=== PATIENT | male | born 1955 | race Caucasian/White ===

== ENCOUNTER 2018-03-08 06:23 | Observation (INO) | payer BC ==
--- NOTE | 2018-03-08 06:48 | ED ---
HPI Chest Pain - HPI Summary HPI Summary: 62 year old male presents to the ED with chest pain that began yesterday afternoon. Patient states the pain was a 1/10 and describes the pain as pressure. Patient states the pain began while he was resting watching television and has been persistent since. He states he is also having pain in his jaw, but this is not a radiation of pain and feels they are "separate." Patient had 2 stents placed in the LAD in 2016. His last stress test was also in 2016. He had been a patient of Dr. Brandan whitfield 1.5 years, but recently released and seen by Dr. Davidson most recently 5 days ago. EKG was performed and visit was otherwise normal. No EKG changes. States this pressure is not worse with exertion, however he has been shoveling his driveway over the last 2 evening prior to the onset of the pressure. Patient took his morning doses of amlodipine and Lipitor but did not take any aspirin or Nitro for the pain. Patient reports mild nausea but denies, vomiting, diaphoresis, SOB, numbness or tingling in arms or legs, arm pain, back pain, dizziness, diarrhea, and constipation. Patient also has a history of gout but denies any current symptoms. Non-smoker. Denies any fevers, sweats or chills. No radiation of the chest pressure to the back. - History of Current Complaint Chief Complaint: EDChestPainROMI Time Seen by Provider: 03/08/18 06:25 Hx Obtained From: Patient Onset/Duration: Started Days Ago, Still Present Timing: Constant Initial Severity: Mild Current Severity: Mild Pain Intensity: 1 Pain Scale Used: 0-10 Numeric Chest Pain Location: Mid Sternal Chest Pain Radiates To:: Jaw Character: Dull/Aching Aggravating Factor(s): Nothing Alleviating Factor(s): Nothing Associated Signs and Symptoms: Positive: Nausea. Negative: Headaches, Dizziness , Shortness of Breath, Diaphoresis, Abdominal Pain, Vomiting - Additional Pertinent History Primary Care Physician: [id number] Recent Stress Test: No - Last stress test 2015 - Allergy/Home Medications Allergies/Adverse Reactions: Allergies Allergy/AdvReac Type Severity Reaction Status Date / Time No Known Allergies Allergy Verified 03/08/18 06:30 Home Medications: Home Medications Allopurinol 100 mg PO DAILY 03/08/18 [History Confirmed 03/08/18] PMH/Surg Hx/FS Hx/Imm Hx Endocrine/Hematology History: Denies: Hx Anticoagulant Therapy, Hx Diabetes, Hx Thyroid Disease Cardiovascular History: Reports: Hx Angina, Hx Hypercholesterolemia, Other Cardiovascular Problems/Disorders - Cardiac catherization (01/02/2016) Denies: Hx Congestive Heart Failure, Hx Deep Vein Thrombosis, Hx Hypertension , Hx Myocardial Infarction, Hx Pacemaker/ICD Respiratory History: Denies: Hx Asthma, Hx Chronic Obstructive Pulmonary Disease (COPD), Hx Lung Cancer, Hx Pneumonia, Hx Pulmonary Embolism GI History: Denies: Hx Gall Bladder Disease, Hx Gastrointestinal Bleed, Hx Ulcer, Hx Urosepsis History: Denies: Hx Kidney Stones, Hx Renal Disease Musculoskeletal History: Reports: Hx Gout Neurological History: Denies: Hx Dementia, Hx Migraine, Hx Seizures, Hx Transient Ischemic Attacks (TIA) Psychiatric History: Denies: Hx Anxiety, Hx Depression, Hx Schizophrenia, Hx Bipolar Disorder - Surgical History Surgery Procedure, Year, and Place: Cardiac Catherization (01/02/2016) Infectious Disease History: No Infectious Disease History: Denies: Hx Clostridium Difficile, Hx Hepatitis, Hx Human Immunodeficiency Virus (HIV), Hx of Known/Suspected MRSA, Hx Shingles, Hx Tuberculosis, Hx Known/ Suspected VRE, Hx Known/Suspected VRSA, History Other Infectious Disease, Traveled Outside the [place] in Last 30 Days - Family History Known Family History: Negative: Cardiac Disease, Hypertension, Diabetes, Renal Disease - Social History Alcohol Use: Rare Substance Use Type: Reports: None Hx Tobacco Use: No Smoking Status (MU): Never Smoked Tobacco Review of Systems Constitutional: Negative Eyes: Negative Positive: Chest Pain Negative: Shortness Of Breath Positive: Nausea. Negative: Abdominal Pain, Vomiting Negative: Headache, Weakness, Numbness All Other Systems Reviewed And Are Negative: Yes Physical Exam Triage Information Reviewed: Yes Vital Signs On Initial Exam: Initial Vitals Temp Pulse Resp BP Pulse Ox 98.2 F 60 16 146/80 94 03/08/18 06:25 03/08/18 06:25 03/08/18 06:25 03/08/18 06:25 03/08/18 06:25 Vital Signs Reviewed: Yes Appearance: Positive: Well-Appearing, No Pain Distress, Well-Nourished Skin: Positive: Warm, Skin Color Reflects Adequate Perfusion Head/Face: Positive: Normal Head/Face Inspection Eyes: Positive: EOMI ENT: Positive: Normal ENT inspection Respiratory/Lung Sounds: Positive: Clear to Auscultation, Breath Sounds Present Cardiovascular: Positive: Normal, RRR, Pulses are Symmetrical in both Upper and Lower Extremities. Negative: Leg Edema Left, Leg Edema Right Abdomen Description: Positive: Nontender, No Organomegaly, Soft Bowel Sounds: Positive: Present Psychiatric: Positive: Normal Diagnostics - Vital Signs Vital Signs Temp Pulse Resp BP Pulse Ox 03/08/18 06:25 98.2 F 60 16 146/80 94 - Laboratory Result Diagrams: 03/08/18 06:45 03/08/18 06:45 Lab Statement: Any lab studies that have been ordered have been reviewed, and results considered in the medical decision making process. Chest Pain Course/Dx - Course Course Of Treatment: Mr. Romero presents to the ED with chest pain that began yesterday afternoon. Patient states he is now experiencing jaw pain but the pain is not radiating from the chest, it feels "separate." Patient describes the pain as a mild pressure and states the pain occurs at rest and does not worsen with exertion. Patient had 2 stents placed in 2016, his last stress test was also in 2016. Patient was seen by Dr. White for 1.5 years after his stent placement and was released to Dr. Davidson. Dr. Davidson saw him 5 days ago in the office and his visit was unremarkable. An EKG was obtained and showed t-wave inversion that is unchanged from his EKG in 2016. Troponin x 1 was negative. Due to patients extensive cardiac history hospitalist was contacted for consideration for admission. Second troponin obtained and pending while awaiting admission. RN states at 9am, patient became hypoxic at 90% on RA and she subsequently placed him on 3L which increased his sat to 95%. - Chest Pain Differential Diagnosis/HQI/PQRI: Acute OR, Angina, Chest Wall - Diagnoses Provider Diagnoses: Chest pain - Provider Notifications Discussed Care Of Patient With: Igor Osborne - Admission Instructed by Provider To: Admit As Inpatient Discharge - Sign-Out/Discharge Documenting (check all that apply): Patient Departure - Discharge Plan Condition: Stable Disposition: ADMITTED TO [facility] Referrals: Jamel Pascal MD [Primary Care Provider] - - Billing Disposition and Condition Condition: STABLE Disposition: Admitted to [facility]
[2018-03-08 07:21] LABS: ABS Basophils 0.1 10^3/ul (0-0.2); ABS Eosinophils 0.1 10^3/ul (0-0.6); ABS Lymphocytes 1.6 10^3/ul (1.0-4.8); ABS Monocytes 0.6 10^3/ul (0-0.8); ABS Neutrophils 4.3 10^3/ul (1.5-7.7); ABS Nucleated RBC 0 10^3/ul; Hematocrit 47 % (42-52); Hemoglobin 15.8 g/dl (14.0-18.0); Mean Corpuscular HGB Conc 34 g/dl (31-36); Mean Corpuscular Hemoglobin 31 pg (27-31); Mean Corpuscular Volume 91 fL (80-94); Mean Platelet Volume 10.9 fL (7.4-10.4); Nucleated Red Blood Cells % 0.1; Platelet Count 177 10^3/ul (150-450); Red Blood Count 5.14 10^6/ul (4.00-5.40); Red Cell Distribution Width 14 % (10.5-15); White Blood Count 6.6 10^3/ul (3.5-10.8)
[2018-03-08 07:29] LABS: INR 0.99 (0.77-1.02)
[2018-03-08 07:38] LABS: EGFR Non-African American 83.4 (>60)
--- OUTSIDE RECORDS SUMMARY | 2018-03-08 08:13 | XMS REPORT ---
:1955 External Reference #:[id number] Author Organization [employer] Address [address] [place] [address] [place] [address] Phone [phone] Care Team Providers Name Role Phone Jamel Pascal III, MD Primary Care Physician Unavailable Payers Type Date Identification Numbers Payment Provider Subscriber Commercial Effective: Policy Number: BS Trish Romero 2011 [id number] PayID: [id number] [address] [address] [place] [address] Medigap Part B Effective: 2009 Policy Number: BS Of JOEL Romero [id number] Expires: 2011 PayID: [id number] [address] [address] [place] [address] Problems Date Description Provider Status Onset: 05/14/2011 Mixed hyperlipidemia Jamel Pascal M.D. Active Onset: 05/14/2011 Impaired fasting glycaemia Jamel Pascal M.D. Active Onset: 05/14/2011 Gout Jamel Pascal M.D. Active Onset: 07/13/2013 Pure hypercholesterolemia Jamel Pascal M.D. Active Onset: 01/10/2016 [facility] [place] cor Sebastian Gipson M.D., [facility] , Active art w unsp ang pctrs [facility] Onset: 01/10/2016 Encounter for planned postprocedural Sebastian Gipson M.D., [facility], Active wound closure [facility] Onset: 07/09/2016 [facility] [place] Sebastian Gipson M.D., [facility], Active coronary artery w/o ang pctrs [facility] Family History Date Family Member(s) Problem(s) Comments Father due to Parkinsons Disease () - age 72 Social History Type Date Description Comments Marital Status 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 Cigarette Use Never Smoked Cigarettes ETOH Use Rarely consumes alcohol Smoking Patient has never smoked Recreational Drug Use Never Used Drugs Daily Caffeine Consumes on average 1 cup of 10 oz daily regular coffee per day Exercise Type/Frequency Exercises regularly walks 1-2 times a day for 2 1/2 miles 4-5 days a week Allergies, Adverse Reactions, Alerts Date Description Reaction Status Severity Comments 05/17/2007 NKDA active Medications Medication Date Status Form Strength Qnty SIG Indications Ordering Provider Ciclopirox 02/24/ Active Gel 0.77% 30gm apply B35.6 Jamel Rivers 2017 twice a [place], day for M.D. 2-3 weeks Allopurinol 07/10/ Active Tablets 100mg 90tabs 1 by Sebastian Hagen mouth Stefek, every day M.D., [facility] Aspir-81 / Active Tablets DR 81mg 90tabs 1 by Jamel Rivers 0000 mouth Naida, every day M.D. Atorvastatin / Active Tablets 80mg 90tabs 1 by Devante Virk Calcium 0000 mouth Davidson, DO every day [facility] Nitroglycerin / Active Tablets 0.4mg 14tabs 1 under Devante STorito 0000 Sub tongue, Davidson, DO august [facility] repeat 3x Amlodipine / Active Tablets 5mg 90tabs 1 by Devante Virk Besylate 0000 mouth Davidson, DO every day [facility] Brilinta 01/12/ Hx Tablets 60mg 60tabs 1 tab by Sebastian 2016 - mouth Stefek, 01/23/ twice a M.D., 2017 [facility] Lipitor 07/13/ Hx Tablets 20mg 30tabs 1 by Jamel Rivers 2013 - mouth Naida, 01/05/ every M.D. 2015 night at bedtime [id number] 11/30/ Hx Tablets 100mg 30tabs 1 by Jamel Rivers 2008 - mouth Naida, 07/10/ every day M.D. 2017 Indomethacin 09/09/ Hx Capsules 25mg 30caps 1 by Jamel Rivers 2007 - mouth Naida, 01/14/ three M.D. 2016 times a day as needed ( Pt told to not take as of 01/07/[address] Pascal III) Aspirin / Hx Tablets 81mg 1 PO qd Victor Manuel 0000 - MD Alfredo 2015 Lipitor / Hx Tablets 40mg 30tabs 1 po hs Jamel VelázquezTorito 0000 - Naida, 07/13/ M.DTorito 2013 Brilinta / Hx Tablets 90mg 180tab 1 tab by Sebastian 0000 - s mouth Brandan, 01/12/ twice a M.D., 2016 [facility], [facility] Immunizations CPT Code Status Date Vaccine Lot # [id number] Given 02/24/2018 Tdap - Tetanus/Diptheria/Acellular Pertussis [id number] Given 02/24/2018 Influenza Virus Vaccine, Quadrivalent, Split, [id number] Preservative Free [id number] Given 06/09/2006 Td (History By Patient) Vital Signs Date Vital Result Comment 03/03/2018 Height 67 inches 5'7" Weight 248.00 lb Heart Rate 74 /min reg BP Systolic Sitting 120 mmHg Ra larg cuff BP Diastolic Sitting 70 mmHg Ra larg cuff BP Systolic Standing 130 mmHg Ra larg cuff BP Diastolic Standing 75 mmHg Ra larg cuff Respiratory Rate 18 /min O2 % BldC Oximetry 98 % BMI (Body Mass Index) 38.8 kg/m2 02/24/2018 Height 67 inches 5'7" Weight 248.00 lb Heart Rate 71 /min BP Systolic Sitting 120 mmHg BP Diastolic Sitting 80 mmHg O2 % BldC Oximetry 95 % BMI (Body Mass Index) 38.8 kg/m2 06/18/2017 Height 68 inches 5'8" Weight 235.00 lb Heart Rate 56 /min BP Systolic 126 mmHg BP Diastolic 74 mmHg Respiratory Rate 15 /min Pain Level 1 BMI (Body Mass Index) 35.7 kg/m2 01/26/2017 Height 67.75 inches 5'7.75" Weight 239.38 lb Heart Rate 69 /min BP Systolic 140 mmHg BP Diastolic 72 mmHg Body Temperature 97.4 F O2 % BldC Oximetry 95 % BMI (Body Mass Index) 36.7 kg/m2 01/12/2017 Height 67.75 inches 5'7.75" Weight 238.00 lb without Heart Rate 70 /min sit and 66 stand BP Systolic Sitting 138 mmHg Rue Reg cuff BP Diastolic Sitting 86 mmHg Rue Reg cuff BP Systolic Standing 126 mmHg Rue reg cuff BP Diastolic Standing 80 mmHg Rue reg cuff Respiratory Rate 17 /min BMI (Body Mass Index) 36.5 kg/m2 Ejection Fraction 60-65% date 01/11/16 echo 07/09/2016 Height 67.75 inches 5'7.75" Weight 233.00 lb w/ shoes Heart Rate 60 /min reg BP Systolic Sitting 130 mmHg Rue, lg cuff BP Diastolic Sitting 70 mmHg Rue, lg cuff BP Systolic Standing 102 mmHg Rue BP Diastolic Standing 70 mmHg Rue BP Systolic Recheck 122 mmHg Rue BP Diastolic Recheck 66 mmHg Rue Respiratory Rate 16 /min BMI (Body Mass Index) 35.7 kg/m2 01/15/2016 Height 67.75 inches 5'7.75" Weight 245.00 lb Heart Rate 75 /min BP Systolic 122 mmHg BP Diastolic 82 mmHg Body Temperature 97.4 F BMI (Body Mass Index) 37.5 kg/m2 01/10/2016 Height 67.75 inches 5'7.75" Weight 247.75 lb with shoes Heart Rate 68 /min BP Systolic Sitting 124 mmHg LA reg cuff BP Diastolic Sitting 88 mmHg LA reg cuff BP Systolic Standing 122 mmHg La reg cuff BP Diastolic Standing 84 mmHg La reg cuff Respiratory Rate 16 /min BMI (Body Mass Index) 37.9 kg/m2 01/07/2016 Height 67.75 inches 5'7.75" Weight 257.50 lb Heart Rate 85 /min BP Systolic Sitting 130 mmHg BP Diastolic Sitting 90 mmHg Body Temperature 97.4 F O2 % BldC Oximetry 98 % BMI (Body Mass Index) 39.4 kg/m2 08/30/2015 Height 67.75 inches 5'7.75" Weight 258.00 lb Heart Rate 77 /min BP Systolic Sitting 126 mmHg BP Diastolic Sitting 78 mmHg Body Temperature 97.8 F O2 % BldC Oximetry 97 % BMI (Body Mass Index) 39.5 kg/m2 07/19/2014 Height 67.75 inches 5'7.75" Weight 251.00 lb Heart Rate 63 /min BP Systolic Sitting 130 mmHg BP Diastolic Sitting 86 mmHg Body Temperature 97.1 F O2 % BldC Oximetry 94 % BMI (Body Mass Index) 38.4 kg/m2 07/13/2013 Height 67.75 inches 5'7.75" Weight 225.00 lb Heart Rate 60 /min BP Systolic Sitting 142 mmHg BP Diastolic Sitting 78 mmHg Body Temperature 97.2 F BMI (Body Mass Index) 34.5 kg/m2 06/30/2012 Height 68 inches 5'8" Weight 268.50 lb Heart Rate 80 /min BP Systolic Sitting 130 mmHg BP Diastolic Sitting 78 mmHg BMI (Body Mass Index) 40.8 kg/m2 05/14/2011 Height 67.75 inches 5'7.75" Weight 263.00 lb Heart Rate 84 /min BP Systolic Sitting 134 mmHg BP Diastolic Sitting 92 mmHg BMI (Body Mass Index) 40.3 kg/m2 06/19/2010 Weight 254.00 lb Heart Rate 78 /min BP Systolic Sitting 132 mmHg BP Diastolic Sitting 70 mmHg 11/21/2009 Weight 249.00 lb Heart Rate 79 /min BP Systolic Sitting 150 mmHg BP Diastolic Sitting 84 mmHg 05/24/2009 Weight 263.00 lb Heart Rate 64 /min BP Systolic Sitting 138 mmHg BP Diastolic Sitting 90 mmHg 11/21/2008 Height 68 inches 5'8" Weight 257.00 lb Heart Rate 60 /min BP Systolic Sitting 148 mmHg BP Diastolic Sitting 96 mmHg BMI (Body Mass Index) 39.1 kg/m2 02/28/2008 Height 68 inches 5'8" Weight 255.00 lb Heart Rate 64 /min BP Systolic Sitting 142 mmHg BP Diastolic Sitting 62 mmHg BMI (Body Mass Index) 38.8 kg/m2 11/17/2007 Height 68 inches 5'8" Weight 257.00 lb Heart Rate 72 /min BP Systolic Sitting 122 mmHg BP Diastolic Sitting 80 mmHg BMI (Body Mass Index) 39.1 kg/m2 05/18/2007 Height 68 inches 5'8" Weight 261.00 lb Heart Rate 72 /min BP Systolic Sitting 102 mmHg BP Diastolic Sitting 70 mmHg BMI (Body Mass Index) 39.7 kg/m2 Results Test Date Test Result H/L Range Note Comp Metabolic Panel 02/18/2018 Sodium 143 mmol/L 135-145 Potassium 4.1 mmol/L 3.5-5.0 Chloride 111 mmol/L 101-111 Co2 Carbon Dioxide 25 mmol/L 22-32 Anion Gap 7 mmol/L 2-11 Glucose 89 mg/dL 70-100 Blood Urea Nitrogen 17 mg/dL 6-24 Creatinine 1.05 mg/dL 0.67-1.17 BUN/Creatinine Ratio 16.2 8-20 Calcium 9.2 mg/dL 8.6-10.3 Total Protein 6.6 g/dL 6.4-8.9 Albumin 4.2 g/dL 3.2-5.2 Globulin 2.4 g/dL 2-4 Albumin/Globulin Ratio 1.8 1-3 Total Bilirubin 0.60 mg/dL 0.2-1.0 Alkaline Phosphatase 120 U/L High 34-104 Alt 33 U/L 7-52 Ast 28 U/L 13-39 Egfr Non- 71.6 >60 Egfr 86.6 >60 1 Lipid Profile (Trig/Chol/HDL) 02/18/2018 Triglycerides 150 mg/dL 2 Cholesterol 123 mg/dL 3 HDL Cholesterol 34.9 mg/dL 4 LDL Cholesterol 58 mg/dL 5 Lipid Profile (Trig/Chol/HDL) 03/05/2016 Triglycerides 104 mg/dL 6 Cholesterol 112 mg/dL 7 HDL Cholesterol 29.7 mg/dL 8 LDL Cholesterol 62 mg/dL 9 Laboratory test finding 03/05/2016 Ast (Sgot) 23 U/L 13-39 10 Alt (SGPT) 23 U/L 7-52 11 Basic Metabolic Panel 03/05/2016 Sodium 139 mmol/L 133-145 Potassium 4.0 mmol/L 3.5-5.0 Chloride 106 mmol/L 101-111 Co2 Carbon Dioxide 26 mmol/L 22-32 Anion Gap 7 mmol/L 2-11 Glucose 101 mg/dL High 70-100 Blood Urea Nitrogen 13 mg/dL 6-24 Creatinine 1.04 mg/dL 0.67-1.17 BUN/Creatinine Ratio 12.5 8-20 Calcium 9.1 mg/dL 8.6-10.3 Egfr Non- 72.8 >60 Egfr 93.7 >60 12 Laboratory test 03/05/2016 Hepatitis C Antibody Nonreactive Nonreactive 13 finding Laboratory test 01/11/2016 Partial Thrombo Time 32.4 seconds 26.0-36.3 finding PTT Inr/Protime 01/11/2016 Inr 1.17 High 0.89-1.11 Laboratory test 01/11/2016 B-Type Natriuretic 24 pg/mL 14 finding Peptide BNP CKMB 01/11/2016 CKMB ng/mL 1.8 ng/mL 0.6-6.3 Laboratory test 01/11/2016 Troponin-I (TnI) 0.02 ng/mL <0.03 15 finding Creatine Kinase(CK) 71 U/L 10-223 Myoglobin 21.3 ng/mL 17.4-105.7 Comp Metabolic Panel 01/11/2016 Sodium 137 mmol/L 133-145 Potassium 4.0 mmol/L 3.5-5.0 Chloride 106 mmol/L 101-111 Co2 Carbon Dioxide 23 mmol/L 22-32 Anion Gap 8 mmol/L 2-11 Glucose 100 mg/dL 70-100 Blood Urea Nitrogen 15 mg/dL 6-24 Creatinine 1.12 mg/dL 0.67-1.17 BUN/Creatinine Ratio 13.4 8-20 Calcium 8.9 mg/dL 8.6-10.3 Total Protein 6.8 g/dL 6.4-8.9 Albumin 4.0 g/dL 3.2-5.2 Globulin 2.8 g/dL 2-4 Albumin/Globulin Ratio 1.4 1-3 Total Bilirubin 0.80 mg/dL 0.2-1.0 Alkaline Phosphatase 84 U/L 34-104 Alt 28 U/L 7-52 Ast 24 U/L 13-39 Egfr Non- 66.9 >60 Egfr 86.0 >60 16 Laboratory test finding 01/11/2016 Lactic Acid 0.9 mmol/L 0.5-2.0 17 CBC Auto Diff 01/11/2016 White Blood Count 6.3 10^3/uL 3.5-10.8 Red Blood Count 4.87 10^6/uL 4.0-5.4 Hemoglobin 14.6 g/dL 14.0-18.0 Hematocrit 44 % 42-52 Mean Corpuscular Volume 90 fL 80-94 Mean Corpuscular Hemoglobin 30 pg 27-31 Mean Corpuscular HGB Conc 33 g/dL 31-36 Red Cell Distribution Width 13 % 10.5-15 Platelet Count 206 10^3/uL 150-450 Mean Platelet Volume 11 um3 High 7.4-10.4 Abs Neutrophils 3.9 10^3/uL 1.5-7.7 Abs Lymphocytes 1.2 10^3/uL 1.0-4.8 Abs Monocytes 0.7 10^3/uL 0-0.8 Abs Eosinophils 0.2 10^3/uL 0-0.6 Abs Basophils 0.4 10^3/uL High 0-0.2 Abs Nucleated RBC 0 10^3/uL Granulocyte % 61.9 % 38-83 Lymphocyte % 18.5 % Low 25-47 Monocyte % 11.3 % High 1-9 Eosinophil % 2.5 % 0-6 Basophil % 5.8 % High 0-2 Nucleated Red Blood Cells % 0 Laboratory test finding 01/02/2016 Troponin-I (TnI) 0.03 ng/mL High <0.03 18 CBC Auto Diff 01/01/2016 White Blood Count 6.6 10^3/uL 3.5-10.8 Red Blood Count 4.94 10^6/uL 4.0-5.4 Hemoglobin 15.2 g/dL 14.0-18.0 Hematocrit 45 % 42-52 Mean Corpuscular Volume 91 fL 80-94 Mean Corpuscular Hemoglobin 31 pg 27-31 Mean Corpuscular HGB Conc 34 g/dL 31-36 Red Cell Distribution Width 13 % 10.5-15 Platelet Count 179 10^3/uL 150-450 Mean Platelet Volume 11 um3 High 7.4-10.4 Abs Neutrophils 3.5 10^3/uL 1.5-7.7 Abs Lymphocytes 2.1 10^3/uL 1.0-4.8 Abs Monocytes 0.8 10^3/uL 0-0.8 Abs Eosinophils 0.2 10^3/uL 0-0.6 Abs Basophils 0.1 10^3/uL 0-0.2 Abs Nucleated RBC 0.01 10^3/uL Granulocyte % 52.7 % 38-83 Lymphocyte % 32.2 % 25-47 Monocyte % 11.5 % High 1-9 Eosinophil % 2.7 % 0-6 Basophil % 0.9 % 0-2 Nucleated Red Blood Cells % 0.1 Comp Metabolic Panel 01/01/2016 Sodium 137 mmol/L 133-145 Chloride 106 mmol/L 101-111 Co2 Carbon Dioxide 25 mmol/L 22-32 Glucose 100 mg/dL 70-100 Blood Urea Nitrogen 14 mg/dL 6-24 Creatinine 1.05 mg/dL 0.67-1.17 BUN/Creatinine Ratio 13.3 8-20 Calcium 8.6 mg/dL 8.6-10.3 Total Protein 6.5 g/dL 6.4-8.9 Albumin 3.9 g/dL 3.2-5.2 Globulin 2.6 g/dL 2-4 Albumin/Globulin Ratio 1.5 1-3 Total Bilirubin 0.40 mg/dL 0.2-1.0 Alkaline Phosphatase 92 U/L 34-104 Alt 41 U/L 7-52 Egfr Non- 72.0 >60 Egfr 92.7 >60 19 Potassium 4.1 mmol/L 3.5-5.0 Anion Gap 6 mmol/L 2-11 Ast 47 U/L High 13-39 Laboratory test finding 01/01/2016 Magnesium 2.1 mg/dL 1.9-2.7 Troponin-I (TnI) 0.02 ng/mL <0.03 20 Lipid Profile (Trig/Chol/HDL) 08/24/2015 Triglycerides 172 mg/dL 21 Cholesterol 153 mg/dL 22 HDL Cholesterol 31.8 mg/dL 23 LDL Cholesterol 87 mg/dL 24 Comp Metabolic Panel 08/24/2015 Sodium 140 mmol/L 133-145 Potassium 3.9 mmol/L 3.5-5.0 Chloride 106 mmol/L 101-111 Co2 Carbon Dioxide 27 mmol/L 22-32 Anion Gap 7 mmol/L 2-11 Glucose 102 mg/dL High 70-100 Blood Urea Nitrogen 16 mg/dL 6-24 Creatinine 1.13 mg/dL 0.67-1.17 BUN/Creatinine Ratio 14.2 8-20 Calcium 8.9 mg/dL 8.6-10.3 Total Protein 6.8 g/dL 6.4-8.9 Albumin 4.5 g/dL 3.2-5.2 Globulin 2.3 g/dL 2-4 Albumin/Globulin Ratio 2.0 1-3 Total Bilirubin 0.80 mg/dL 0.2-1.0 Alkaline Phosphatase 77 U/L 34-104 Alt 25 U/L 7-52 Ast 23 U/L 13-39 Egfr Non- 66.4 >60 Egfr 85.4 >60 25 Laboratory test finding 08/24/2015 Hemoglobin A1c (Glyco 5.8 % Less than 6.0 26 HGB) Uric Acid 7.0 mg/dL 4.4-7.6 Laboratory test finding 07/14/2014 Hemoglobin A1c 5.8 % Less than 6.0 27 , 28 Comp Metabolic Panel 07/14/2014 Sodium 139 mmol/L 133-145 27 Potassium 4.0 mmol/L 3.5-5.0 27 Chloride 107 mmol/L 101-111 27 Co2 Carbon Dioxide 26 mmol/L 22-32 27 Anion Gap 6 mmol/L 2-11 27 Glucose 88 mg/dL 70-100 27 Blood Urea Nitrogen 12 mg/dL 6-24 27 Creatinine 1.06 mg/dL 0.67-1.17 27 BUN/Creatinine Ratio 11.3 8-20 27 Calcium 9.1 mg/dL 8.6-10.3 27 Total Protein 6.5 g/dL 6.4-8.9 27 Albumin 4.4 g/dL 3.2-5.2 27 Globulin 2.1 g/dL 2-4 27 Albumin/Globulin Ratio 2.1 1-3 27 Total Bilirubin 0.70 mg/dL 0.2-1.0 27 Alkaline Phosphatase 75 U/L 34-104 27 Alt 35 U/L 7-52 27 Ast 30 U/L 13-39 27 Egfr Non- 71.8 >60 27 Egfr 92.3 >60 27, 29 Lipid Profile (Trig/Chol/HDL) 07/14/2014 Triglycerides 175 mg/dL 27, 30 Cholesterol 163 mg/dL 27, 31 HDL Cholesterol 34.9 mg/dL 27, 32 LDL Cholesterol 93 mg/dL 27, 33 Lipid Profile (Trig/Chol/HDL) 07/08/2013 Triglycerides 154 mg/dL 34 Cholesterol 127 mg/dL 35 HDL Cholesterol 28.8 mg/dL 36 LDL Cholesterol 67 mg/dL 37 CBC With Manual Diff 07/08/2013 White Blood Count 7.0 10^3/uL 4.8-10.8 Red Blood Count 5.04 10^6/uL 4.0-5.4 Hemoglobin 16.0 g/dL 14.0-18.0 Hematocrit 46 % 42-52 Mean Corpuscular Volume 90 fL 80-94 Mean Corpuscular Hemoglobin 32 pg High 27-31 Mean Corpuscular HGB Conc 35 g/dL 31-36 Red Cell Distribution Width 13 % 10.5-15 Platelet Count 197 10^3/uL 150-450 Mean Platelet Volume 10 um3 7.4-10.4 Abs Neutrophils 4.3 10^3/uL 1.5-7.7 Abs Lymphocytes 1.5 10^3/uL 1.0-4.8 Abs Monocytes 1.0 10^3/uL High 0-0.8 Abs Eosinophils 0.2 10^3/uL 0-0.6 Abs Basophils 0.1 10^3/uL 0-0.2 Abs Nucleated RBC 0.01 10^3/uL Neutrophil % 62 % 38-83 Lymphocytes % 22 % Low 25-47 Monocytes % 10 % 0-13 Eosinophils % 5 % 0-6 Reactive Lymph % 1 % 0-6 RBC Morphology Normal Normal Comp Metabolic Panel 07/08/2013 Sodium 140 mmol/L 133-145 Potassium 3.6 mmol/L Low 3.7-5.6 Chloride 106 mmol/L 101-111 Co2 Carbon Dioxide 28 mmol/L 22-32 Anion Gap 6 mmol/L 2-11 Glucose 87 mg/dL 70-100 Blood Urea Nitrogen 16 mg/dL 6-24 Creatinine 1.13 mg/dL 0.67-1.17 BUN/Creatinine Ratio 14.2 8-20 Calcium 8.8 mg/dL 8.6-10.3 Total Protein 6.4 g/dL 6.4-8.9 Albumin 4.3 g/dL 3.2-5.2 Globulin 2.1 g/dL 2-4 Albumin/Globulin Ratio 2.0 1-3 Total Bilirubin 0.40 mg/dL 0.2-1.0 Alkaline Phosphatase 93 U/L 34-104 Alt 40 U/L 7-52 Ast 34 U/L 13-39 Egfr Non- 66.9 >60 Egfr 86.0 >[address] Pascal's Lab Panel 07/08/2013 TSH (Thyroid Stimulating 0.64 IU/mL 0.34 -5.60 Horm) Throat-Beta Strept 03/24/2013 Throat Beta Strep (SEE NOTE) 39 Culture Throat-Beta Strept 09/14/2012 Throat Beta Strep (SEE NOTE) 40 Culture BMP Basic Metabolic 06/28/2012 Sodium 140 mmol/L 133-145 Panel Potassium 4.3 mmol/L 3.5-5.0 Chloride 110 mmol/L 101-111 Co2 Carbon Dioxide 27.0 mmol/L 22-32 Anion Gap 3.0 mmol/L 2-11 Glucose 104 mg/dL High 70-100 Blood Urea Nitrogen 12 mg/dL 6-24 Creatinine 1.00 mg/dL 0.50-1.40 BUN/Creatinine Ratio 12.0 8-20 Calcium 9.1 mg/dL 8.1-9.9 Egfr Non- 77.3 >60 Egfr 99.4 >60 41 Lipid Panel 06/28/2012 Triglycerides 227 mg/dL High 40-200 Cholesterol 159 mg/dL Less than 200 HDL Cholesterol 36 mg/dL Low 40-60 42 Cholesterol/HDL Ratio 4.4 Average 1-4.44 LDL Cholesterol 77.6 mg/dL Less Than 100 43 Laboratory test finding 06/28/2012 Hemoglobin A1c 5.3 % Less than 6.0 44 Uric Acid 5.7 mg/dL 2.6-7.2 DR Pascal's Lab Panel 05/12/2011 TSH 0.56 MIU/ML 0.34-5.60 Comp Metabolic Panel 05/12/2011 Sodium 140 mmol/L 135-145 Potassium 4.4 mmol/L 3.5-5.0 Chloride 107 mmol/L 101-111 Co2 (Carbon Dioxide) 26.0 mmol/L 22-32 Anion Gap 7.0 mmol/L 2-11 45 Glucose 95 mg/dL 70-100 BUN 13 mg/dL 6-24 Creatinine 1.2 mg/dL 0.50-1.40 One Over Creatinine 0.83 BUN/Creatinine Ratio 10.8 8-20 Calcium 9.1 mg/dL 8.1-9.9 Total Protein 6.7 GM/DL 6.2-8.1 Albumin 4.2 GM/DL 3.6-5.4 Globulin 2.5 GM/DL 2-4 Albumin/Globulin Ratio 1.7 1-3 Bilirubin Total 0.8 mg/dL 0.4-1.5 46 Alkaline Phosphatase 89 U/L 39-117 Alt (SGPT) 33 U/L 17-63 Ast (Sgot) 30 U/L 12-42 eGFR Non- 62.9 > 60 eGFR 80.8 > 60 47 Lipid Profile (Trig/Chol/HDL) 05/12/2011 Triglyceride 216 mg/dL High 40- 200 Cholesterol 161 mg/dL Less Than 200 48 High Density Lipoprotein 33 mg/dL Low 40-60 49 Cholesterol/HDL Ratio 4.88 AVERAGE 1-4.97 Low Density Lipoprotein 85 mg/dL Less Than 100 50 CBC With Electronic Diff 05/12/2011 White Blood Count 7.9 CUMM 4.8-10.8 Red Cell Count 5.19 CUMM 4.6-6.2 Hemoglobin 16.0 g/dL 14.0-18.0 Hematocrit 48 % 42-52 Mean Corpuscular Volume 92 um3 80-94 Mean Corpuscular Hemoglob 31 pg 27-31 Mean Corpuscular HGB Cone 34 g/dL 32-36 Redcell Distribution WDTH 13 % 10.5-15 Platelet Count 200 CUMM 150-450 Mean Platelet Volume 11.6 um3 High 7.4-10.4 Gran % 58.5 % 38-83 Lymph % 29.6 % 25-47 Mononuclear % 8.5 % 1-9 Eosinophil % 2.9 % 0-6 Basophil % 0.5 % 0-2 Abs Lymphs 2.3 1.0-4.8 Abs Mononuclear 0.7 0-0.8 Absolute Neutrophil Count 4.6 1.5-7.7 Abs Eosinophils 0.2 0-0.6 Abs Basophils 0 0-0.2 Laboratory test finding 05/12/2011 Hemoglobin A1c 5.6 % Less Than 6.0 51 Uric Acid 6.8 mg/dL 2.6-7.2 Basic Metabolic Panel 06/06/2010 Sodium 139 mmol/L 135-145 Potassium 4.2 mmol/L 3.5-5.0 Chloride 106 mmol/L 101-111 Co2 (Carbon Dioxide) 27.0 mmol/L 22-32 Anion Gap 6.0 mmol/L 2-11 52 Glucose 107 mg/dL High 70-100 BUN 11 mg/dL 6-24 Creatinine 1.00 mg/dL 0.50-1.40 One Over Creatinine 1.00 BUN/Creatinine Ratio 11.0 8-20 Calcium 9.0 mg/dL 8.1-9.9 eGFR Non- 77.9 > 60 eGFR 100.1 > 60 53 Laboratory test finding 06/06/2010 Hemoglobin A1c 5.8 % Less Than 6.[address] Pascal's Lab Panel 11/15/2009 TSH 0.51 MIU/ML 0.34-5.60 CMP Panel 11/15/2009 Sodium 139 mmol/L 135-145 Potassium 4.2 mmol/L 3.5-5.0 Chloride 109 mmol/L 101-111 Co2 (Carbon Dioxide) 24.0 mmol/L 22-32 Anion Gap 6.0 mmol/L 2-11 55 Glucose 112 mg/dL High 70-100 56 BUN 12 mg/dL 6-24 Creatinine 1.10 mg/dL 0.50-1.40 One Over Creatinine 0.90 BUN/Creatinine Ratio 10.9 8-20 Calcium 8.8 mg/dL 8.1-9.9 57 Total Protein 5.8 GM/DL Low 6.2-8.1 Albumin 4.0 GM/DL 3.6-5.4 Globulin 1.8 GM/DL Low 2-4 Albumin/Globulin Ratio 2.2 1-3 Bilirubin Total 0.8 mg/dL 0.4-1.5 58 Alkaline Phosphatase 103 U/L 39-117 Alt (SGPT) 27 U/L 17-63 Ast (Sgot) 28 U/L 12-42 eGFR Non- 74.1 > 60 eGFR 89.7 > 60 59 Lipid Panel 11/15/2009 Triglyceride 122 mg/dL 40-200 Cholesterol 139 mg/dL Less Than 200 60 High Density Lipoprotein 26 mg/dL Low 40-60 61 Cholesterol/HDL Ratio 5.35 AVERAGE High 1-4.97 Low Density Lipoprotein 89 mg/dL Less Than 100 62 CBC W/Electronic Diff 11/15/2009 White Blood Count 6.9 CUMM 4.8-10.8 Red Cell Count 4.90 CUMM 4.6-6.2 Hemoglobin 15.3 g/dL 14.0-18.0 Hematocrit 45 % 42-52 Mean Corpuscular Volume 92 um3 80-94 Mean Corpuscular Hemoglob 31 pg 27-31 Mean Corpuscular HGB Cone 34 g/dL 32-36 Redcell Distribution WDTH 13 % 10.5-15 Platelet Count 191 CUMM 150-450 Mean Platelet Volume 10.6 um3 High 7.4-10.4 Gran % 53.6 % 38-83 Lymph % 34.6 % 25-47 Mononuclear % 8.8 % 1-9 Eosinophil % 2.3 % 0-6 Basophil % 0.7 % 0-2 Abs Lymphs 2.4 1.0-4.8 Abs Mononuclear 0.6 0-0.8 Absolute Neutrophil Count 3.7 1.5-7.7 Abs Eosinophils 0.2 0-0.6 Abs Basophils 0 0-0.2 Manual Differential 11/15/2009 Polysegmented Neutrophil 51 % 38-83 Band Neutrophil 1 % 0-8 Lymphocyte 39 % 25-47 Monocyte 8 % 0-13 Eosinophil 1 % 0-6 Absolute Neutrophil Count 3.5 Anisocytosis SLIGHT Platelet Evaluation LARGE CBC With Manual Diff 05/21/2009 White Blood Count 6.9 CUMM 4.8-10.8 Red Cell Count 5.05 CUMM 4.6-6.2 Hemoglobin 15.7 g/dL 14.0-18.0 Hematocrit 46 % 42-52 Mean Corpuscular Volume 92 um3 80-94 Mean Corpuscular Hemoglob 31 pg 27-31 Mean Corpuscular HGB Cone 34 g/dL 32-36 Redcell Distribution WDTH 13 % 10.5-15 Platelet Count 195 CUMM 150-450 Mean Platelet Volume 10.5 um3 High 7.4-10.4 Polysegmented Neutrophil 58 % 38-83 Band Neutrophil 1 % 0-8 Lymphocyte 29 % 25-47 Monocyte 8 % 0-13 Eosenophil 1 % 0-6 Atypical Lymph 3 % 0-6 Absolute Neutrophil Count 4.0 RBC Morphology NORMAL Comp Metabolic Panel 05/21/2009 Sodium 141 mmol/L 135-145 Potassium 4.2 mmol/L 3.5-5.0 Chloride 109 mmol/L 101-111 Co2 (Carbon Dioxide) 26.0 mmol/L 22-32 Anion Gap 6.0 mmol/L 2-11 63 Glucose 94 mg/dL 70-100 64 BUN 16 mg/dL 6-24 Creatinine 1.00 mg/dL 0.50-1.40 One Over Creatinine 1.00 BUN/Creatinine Ratio 16.0 8-20 Calcium 9.0 mg/dL 8.1-9.9 65 Total Protein 6.0 GM/DL Low 6.2-8.1 Albumin 4.0 GM/DL 3.6-5.4 Globulin 2.0 GM/DL 2-4 Albumin/Globulin Ratio 2.0 1-3 Bilirubin Total 0.8 mg/dL 0.4-1.5 66 Alkaline Phosphatase 90 U/L 39-117 Alt (SGPT) 30 U/L 17-63 Ast (Sgot) 29 U/L 12-42 eGFR Non- 83.1 > 60 eGFR 100.5 > 60 67 Lipid Profile (Trig/Chol/HDL) 05/21/2009 Triglyceride 263 mg/dL High 40- 200 Cholesterol 169 mg/dL Less Than 200 68 High Density Lipoprotein 29 mg/dL Low 40-60 69 Cholesterol/HDL Ratio 5.83 AVERAGE High 1-4.97 Low Density Lipoprotein 87 mg/dL Less Than 100 70 Laboratory test finding 05/21/2009 TSH 0.48 MIU/ML 0.34-5.60 Laboratory test finding 02/07/2009 Uric Acid 6.5 mg/dL 2.6-7.2 Laboratory test finding 11/15/2008 TSH 0.39 MIU/ML 0.34-5.60 71 PSA Screening 0.60 NG/ML 0-4 71, 72 Uric Acid 11.0 mg/dL High 2.6-7.2 71 Lipid Profile (Trig/Chol/HDL) 11/15/2008 Triglyceride 127 mg/dL 40-200 71 Cholesterol 158 mg/dL Less Than 200 71, 73 High Density Lipoprotein 26 mg/dL Low 40-60 71, 74 Cholesterol/HDL Ratio 6.08 AVERAGE High 1-4.97 71 Low Density Lipoprotein 107 mg/dL High Less Than 100 71, 75 Comp Metabolic Panel 11/15/2008 Sodium 143 mmol/L 135-145 71 Potassium 4.8 mmol/L 3.5-5.0 71 Chloride 112 mmol/L High 101-111 71 Co2 (Carbon Dioxide) 27.0 mmol/L 22-32 71 Anion Gap 4.0 mmol/L 2-11 71, 76 Glucose 106 mg/dL High 70-100 71, 77 BUN 15 mg/dL 6-24 71 Creatinine 1.20 mg/dL 0.50-1.40 71 One Over Creatinine 0.80 71 BUN/Creatinine Ratio 12.5 8-20 71 Calcium 9.4 mg/dL 8.1-9.9 71, 78 Total Protein 6.4 GM/DL 6.2-8.1 71 Albumin 4.1 GM/DL 3.6-5.4 71 Globulin 2.3 GM/DL 2-4 71 Albumin/Globulin Ratio 1.8 1-3 71 Bilirubin Total 1.1 mg/dL 0.4-1.5 71, 79 Alkaline Phosphatase 73 U/L 39-117 71 Alt (SGPT) 37 U/L 17-63 71 Ast (Sgot) 33 U/L 12-42 71 eGFR Non- 67.3 > 60 71 eGFR 81.4 > 60 71, 80 CBC With Electronic Diff 11/15/2008 White Blood Count 5.3 CUMM 4.8-10.8 71 Red Cell Count 5.15 CUMM 4.6-6.2 71 Hemoglobin 15.8 g/dL 14.0-18.0 71 Hematocrit 47 % 42-52 71 Mean Corpuscular Volume 91 um3 80-94 71 Mean Corpuscular Hemoglob 31 pg 27-31 71 Mean Corpuscular HGB Cone 34 g/dL 32-36 71 Redcell Distribution WDTH 13 % 10.5-15 71 Platelet Count 191 CUMM 150-450 71 Mean Platelet Volume 10.7 um3 High 7.4-10.4 71 Gran % 47.6 % 38-83 71 Lymph % 37.0 % 25-47 71 Mononuclear % 11.9 % High 1-9 71 Eosinophil % 2.7 % 0-6 71 Basophil % 0.8 % 0-2 71 Abs Lymphs 2.0 1.0-4.8 71 Abs Mononuclear 0.6 0-0.8 71 Absolute Neutrophil Count 2.5 1.5-7.7 71 Abs Eosinophils 0.1 0-0.6 71 Abs Basophils 0 0-0.2 71 Liver Function Panel 11/11/2007 Total Protein 6.7 GM/DL 6.2-8.1 81 Albumin 4.2 GM/DL 3.6-5.4 81 Globulin 2.5 GM/DL 2-4 81 Albumin/Globulin Ratio 1.7 1-3 81 Bilirubin Total 0.6 mg/dL 0.4-1.5 81 Bilirubin Direct 0.2 mg/dL 0.1-0.5 81 Indirect Bilirubin 0.4 mg/dL 0.1-0.75 81 Alkaline Phosphatase 100 U/L 39-117 81 Alt (SGPT) 43 U/L 17-63 81 Ast (Sgot) 36 U/L 12-42 81 Lipid Profile (Trig/Chol/HDL) 11/11/2007 Triglyceride 195 mg/dL 40-200 81 Cholesterol 160 mg/dL Less Than 200 81, 82 High Density Lipoprotein 31 mg/dL Low 40-60 81, 83 Cholesterol/HDL Ratio 5.16 AVERAGE High 1-4.97 81 Low Density Lipoprotein 90 mg/dL Less Than 100 81, 84 Comp Metabolic Panel 05/13/2007 One Over Creatinine 0.83 Anion Gap 6.0 mmol/L 2-11 85 Albumin/Globulin Ratio 1.4 1-3 Albumin 4.1 GM/DL 3.6-5.4 Alkaline Phosphatase 82 U/L 39-117 Alt (SGPT) 41 U/L 17-63 Ast (Sgot) 35 U/L 12-42 BUN 18 mg/dL 6-24 Calcium 9.2 mg/dL 8.7-10.2 Chloride 105 mmol/L 101-111 Co2 (Carbon Dioxide) 27.0 mmol/L 22-32 Globulin 3.0 GM/DL 2-4 Glucose 97 mg/dL 70-105 Potassium 4.0 mmol/L 3.5-5.0 Sodium 138 mmol/L 135-145 Bilirubin Total 0.8 mg/dL 0.4-1.5 Total Protein 7.1 GM/DL 6.2-8.1 BUN/Creatinine Ratio 15.0 8-20 Creatinine 1.2 mg/dL 0.5-1.4 Lipid Profile 05/13/2007 Cholesterol/HDL Ratio 5.32 AVERAGE High 1-4.97 (Trig/Chol/HDL) Cholesterol 165 mg/dL Less Than 200 86 Triglyceride 192 mg/dL 40-200 High Density Lipoprotein 31 mg/dL Low 40-60 87 Low Density Lipoprotein 96 mg/dL Less Than 100 88 Laboratory test finding 05/13/2007 PSA Screening 0.54 NG/ML 0-4 89 TSH 0.36 MIU/ML 0.34-5.60 CBC W/ Electronic Diff 05/13/2007 White Blood Count 6.8 CUMM 4.8-10.8 Abs Basophils 0 0-0.2 Abs Eosinophils 0.1 0-0.6 Absolute Neutrophil Count 3.6 1.5-7.7 Abs Lymphs 2.3 1.0-4.8 Abs Mononuclear 0.7 0-0.8 Basophil % 0.6 % 0-2 Hematocrit 47 % 42-52 Hemoglobin 16.0 g/dL 14.0-18.0 Eosinophil % 2.0 % 0-6 Gran % 53.3 % 38-83 Lymph % 33.3 % 20-45 Mean Corpuscular HGB [facility] 34 g/dL 32-36 Mean Corpuscular Hemoglob 31 pg 27-31 Mean Corpuscular Volume 90 um3 80-94 Mean Platelet Volume 11.9 um3 High 7.4-10.4 Mononuclear % 10.8 % High 1-9 Platelet Count 227 CUMM 150-450 Red Cell Count 5.22 CUMM 4.6-6.2 Redcell Distribution WDTH 13 % 10.5-15 1 Because ethnic data is not always readily available, this report includes an eGFR for both -Americans and non- Americans. The National Kidney Disease Education Program (NKDEP) does not endorse the use of the MDRD equation for patients that are not between the ages of 18 and 70, are , have extremes of body size, muscle mass, or nutritional status, or are non- or non-. According to the National Kidney Foundation, irrespective of diagnosis, the stage of the disease is based on the level of kidney function: Stage Description GFR(mL/min/1.73 m(2)) 1 Kidney damage with normal or decreased GFR 90 2 Kidney damage with mild decrease in GFR 60-89 3 Moderate decrease in GFR 30-59 4 Severe decrease in GFR 15-29 5 Kidney failure <15 (or dialysis) 2 Desirable: <150 Borderline High: 150-199 High: 200-499 Very High: >500 3 Desirable: <200 Borderline High: 200-239 High: >239 4 Low: <40 Desirable: 40-60 High: >60 5 Desirable: <100 Near Optimal: 100-129 Borderline High: 130-159 High: 160-189 Very High: >189 6 Desirable <150 Borderline high 150-199 High 200-499 Very High >500 7 Desirable <200 Borderline high 200-239 High >239 8 Low <40 Desirable: 40-60 High: >60 9 Desirable: <100 mg/dL Near Optimal: 100-129 mg/dL Borderline High: 130-159 mg/dL High: 160-189 mg/dL Very High: >189 mg/dL 10 FASTING 11 FASTING 12 Because ethnic data is not always readily available, this report includes an eGFR for both -Americans and non- Americans. The National Kidney Disease Education Program (NKDEP) does not endorse the use of the MDRD equation for patients that are not between the ages of 18 and 70, are , have extremes of body size, muscle mass, or nutritional status, or are non- or non-. According to the National Kidney Foundation, irrespective of diagnosis, the stage of the disease is based on the level of kidney function: Stage Description GFR(mL/min/1.73 m(2)) 1 Kidney damage with normal or decreased GFR 90 2 Kidney damage with mild decrease in GFR 60-89 3 Moderate decrease in GFR 30-59 4 Severe decrease in GFR 15-29 5 Kidney failure <15 (or dialysis) 13 FASTING 14 >100 to <200 pg/mL: likely compensated congestive heart failure (CHF) 200 to 400 pg/mL: likely moderate CHF >400 pg/mL: likely moderate to severe CHF 15 Reference Range and Interpretation: TnI (ng/mL) Interpretation Less Than 0.03 ng/mL Not supportive of diagnosis of ME 0.03 - 0.50 ng/mL Indeterminate: suggest serial studies if clinically indicated. Greater than 0.5 ng/mL Consistent with diagnosis of ME 16 Because ethnic data is not always readily available, this report includes an eGFR for both -Americans and non- Americans. The National Kidney Disease Education Program (NKDEP) does not endorse the use of the MDRD equation for patients that are not between the ages of 18 and 70, are , have extremes of body size, muscle mass, or nutritional status, or are non- or non-. According to the National Kidney Foundation, irrespective of diagnosis, the stage of the disease is based on the level of kidney function: Stage Description GFR(mL/min/1.73 m(2)) 1 Kidney damage with normal or decreased GFR 90 2 Kidney damage with mild decrease in GFR 60-89 3 Moderate decrease in GFR 30-59 4 Severe decrease in GFR 15-29 5 Kidney failure <15 (or dialysis) 17 [facility] Severe Sepsis and Septic Shock Management Bundle Measure requires all lactic acids initially measuring >2.0 mmol/L be repeated. 18 Reference Range and Interpretation: TnI (ng/mL) Interpretation Less Than 0.03 ng/mL Not supportive of diagnosis of ME 0.03 - 0.50 ng/mL Indeterminate: suggest serial studies if clinically indicated. Greater than 0.5 ng/mL Consistent with diagnosis of ME 19 Because ethnic data is not always readily available, this report includes an eGFR for both -Americans and non- Americans. The National Kidney Disease Education Program (NKDEP) does not endorse the use of the MDRD equation for patients that are not between the ages of 18 and 70, are , have extremes of body size, muscle mass, or nutritional status, or are non- or non-. According to the National Kidney Foundation, irrespective of diagnosis, the stage of the disease is based on the level of kidney function: Stage Description GFR(mL/min/1.73 m(2)) 1 Kidney damage with normal or decreased GFR 90 2 Kidney damage with mild decrease in GFR 60-89 3 Moderate decrease in GFR 30-59 4 Severe decrease in GFR 15-29 5 Kidney failure <15 (or dialysis) 20 Reference Range and Interpretation: TnI (ng/mL) Interpretation Less Than 0.03 ng/mL Not supportive of diagnosis of ME 0.03 - 0.50 ng/mL Indeterminate: suggest serial studies if clinically indicated. Greater than 0.5 ng/mL Consistent with diagnosis of ME 21 Desirable <150 Borderline high 150-199 High 200-499 Very High >500 22 Desirable <200 Borderline high 200-239 High >239 23 Low <40 Desirable: 40-60 High: >60 24 Desirable: <100 mg/dL Near Optimal: 100-129 mg/dL Borderline High: 130-159 mg/dL High: 160-189 mg/dL Very High: >189 mg/dL 25 Because ethnic data is not always readily available, this report includes an eGFR for both -Americans and non- Americans. The National Kidney Disease Education Program (NKDEP) does not endorse the use of the MDRD equation for patients that are not between the ages of 18 and 70, are , have extremes of body size, muscle mass, or nutritional status, or are non- or non-. According to the National Kidney Foundation, irrespective of diagnosis, the stage of the disease is based on the level of kidney function: Stage Description GFR(mL/min/1.73 m(2)) 1 Kidney damage with normal or decreased GFR 90 2 Kidney damage with mild decrease in GFR 60-89 3 Moderate decrease in GFR 30-59 4 Severe decrease in GFR 15-29 5 Kidney failure <15 (or dialysis) 26 Therapeutic target for the treatment of diabetes Mellitus patients is <7% HBA1C, and in selective patients <6.0%.Please refer to [place] [employer] Diabetic care guidelines for further information. 27 FASTING 10 HOUR 28 Therapeutic target for the treatment of diabetes Mellitus patients is <7% HBA1C, and in selective patients <6.0%.Please refer to [place] [employer] Diabetic care guidelines for further information. 29 Because ethnic data is not always readily available, this report includes an eGFR for both -Americans and non- Americans. The National Kidney Disease Education Program (NKDEP) does not endorse the use of the MDRD equation for patients that are not between the ages of 18 and 70, are , have extremes of body size, muscle mass, or nutritional status, or are non- or non-. According to the National Kidney Foundation, irrespective of diagnosis, the stage of the disease is based on the level of kidney function: Stage Description GFR(mL/min/1.73 m(2)) 1 Kidney damage with normal or decreased GFR 90 2 Kidney damage with mild decrease in GFR 60-89 3 Moderate decrease in GFR 30-59 4 Severe decrease in GFR 15-29 5 Kidney failure <15 (or dialysis) 30 Desirable <150 Borderline high 150-199 High 200-499 Very High >500 31 Desirable <200 Borderline high 200-239 High >239 32 Low <40 Desirable: 40-60 High: >60 33 Desirable: <100 mg/dL Near Optimal: 100-129 mg/dL Borderline High: 130-159 mg/dL High: 160-189 mg/dL Very High: >189 mg/dL 34 Desirable <150 Borderline high 150-199 High 200-499 Very High >500 35 Desirable <200 Borderline high 200-239 High >239 36 Low <40 Desirable: 40-60 High: >60 37 Desirable <100 Near Optimal 100-129 Borderline high 130-159 High 160-189 Very High >189 38 Because ethnic data is not always readily available, this report includes an eGFR for both -Americans and non- Americans. The National Kidney Disease Education Program (NKDEP) does not endorse the use of the MDRD equation for patients that are not between the ages of 18 and 70, are , have extremes of body size, muscle mass, or nutritional status, or are non- or non-. According to the National Kidney Foundation, irrespective of diagnosis, the stage of the disease is based on the level of kidney function: Stage Description GFR(mL/min/1.73 m(2)) 1 Kidney damage with normal or decreased GFR 90 2 Kidney damage with mild decrease in GFR 60-89 3 Moderate decrease in GFR 30-59 4 Severe decrease in GFR 15-29 5 Kidney failure <15 (or dialysis) 39 RUN DATE: 03/26/13 [facility] LAB LIVE PAGE 1 RUN TIME: [address] [place] [id number] Specimen Inquiry Name: RYLEEMOOSE : [address]: Mario Sage MD Acct: [id number] Unit: [id number] AGE: 57 Location: [facility] Re03/24/13 SEX: M Status: DEP ER SPEC: [id number] MARYURI: 03/24/13 [facility] DR: Mario Sage MD REQ: [id number] RECD: 03/24/13 STATUS: MIKKI TURCIOS DR: ERIN Pascal III, MD _ SOURCE: THROAT SPDESC: ORDERED: Throat Beta Str Procedure Result Verified Site Throat Beta Strep Culture Final 03/26/13- 0811 ML Negative For Group A Beta Streptococcus END OF REPORT * ML=Testing performed at Main Lab DEPARTMENT OF PATHOLOGY, [facility] [employer] [place], [place] [address] Ino Marcial M.D. Director [facility] Permit #[id number] RUN DATE: 09/16/12 [facility] LAB LIVE PAGE 1 RUN TIME: 817 [facility] [employer] [place], [place] [address] Specimen Inquiry Name: MOOSE ROMERO : [address]: Sheri Arizmendi MD Acct: [id number] Unit: [id number] AGE: 56 Location: [facility] Re09/14/12 SEX: M Status: DEP ER SPEC: [id number] MARYURI: 09/14/12 [facility] DR: Sheri Arizmendi MD REQ: [id number] RECD: 09/14/121039 STATUS: MIKKI TURCIOS DR: Jamel Pascal III, MD _ SOURCE: THROAT SPDESC: ORDERED: Throat Beta Str Procedure Result Verified Site Throat Beta Strep Culture Final 09/16/12- 817 ML Negative For Group A Beta Streptococcus END OF REPORT * ML=Testing performed at Main Lab DEPARTMENT OF PATHOLOGY, [address] [place] [address] Ino Marcial M.D. Director [facility] Permit #[id number] 41 Because ethnic data is not always readily available, this report includes an eGFR for both -Americans and non- Americans. The National Kidney Disease Education Program (NKDEP) does not endorse the use of the MDRD equation for patients that are not between the ages of 18 and 70, are , have extremes of body size, muscle mass, or nutritional status, or are non- or non-. According to the National Kidney Foundation, irrespective of diagnosis, the stage of the disease is based on the level of kidney function: Stage Description GFR(mL/min/1.73 m(2)) 1 Kidney damage with normal or decreased GFR 90 2 Kidney damage with mild decrease in GFR 60-89 3 Moderate decrease in GFR 30-59 4 Severe decrease in GFR 15-29 5 Kidney failure <15 (or dialysis) 42 HDL Interpretation: Undesirable: High Risk: Less than 40 MG/DL Desirable: Low Risk: Greater than 60 MG/DL 43 LDL Interpretation: Low Risk Optimal Level: LDL Less than 100 MG/DL Near or Above Optimal: LDL 100-129 MG/DL Borderline High Risk: LDL 130-159 MG/DL High Risk: LDL 160-189 MG/DL Very High Risk: LDL Greater than 189 MG/DL 44 Therapeutic target for the treatment of diabetes Mellitus patients is <7% HBA1C, and in selective patients <6.0%.Please refer to [place] [employer] Diabetic care guidelines for further information. 45 Anion gap measurement may be of limited value in the presence of any alkalosis, especially in a combined acid base disorder. . 46 A metabolite of Naproxen, O-desmethylnaproxen, has been shown to interfere with the Jendrassik-Lancaster method for measuring total bilirubin. Samples from patients who have taken Naproxen have shown spurious elevation in total bilirubin levels. 47 Because ethnic data is not always readily available, this report includes an eGFR for both -Americans and non- Americans. The National Kidney Disease Education Program (NKDEP) does not endorse the use of the MDRD equation for patients that are not between the ages of 18 and 70, are , have extremes of body size, muscle mass, or nutritional status, or are non- or non-. According to the National Kidney Foundation, irrespective of diagnosis, the stage of the disease is based on the level of kidney function: Stage Description GFR(mL/min/1.73 m(2)) 1 Kidney damage with normal or decreased GFR 90 2 Kidney damage with mild decrease in GFR 60-89 3 Moderate decrease in GFR 30-59 4 Severe decrease in GFR 15-29 5 Kidney failure <15 (or dialysis) 48 CHOLESTEROL INTERPRETATION: Desirable: Less than 200 MG/DL Borderline-High Risk: 200-239 MG/DL High-Risk: 240 MG/DL and over 49 HDL INTERPRETATION: Undesirable: High Risk: Less than 40 MG/DL Desirable: Low Risk: Greater than 60 MG/DL 50 LDL INTERPRETATION: Low Risk Optimal Level: LDL Less than 100 MG/DL Near or Above Optimal: LDL 100-129 MG/DL Borderline High Risk: LDL 130-159 MG/DL High Risk: LDL 160-189 MG/DL Very High Risk: LDL Greater than 189 MG/DL 51 THERAPEUTIC TARGET FOR THE TREATMENT OF DIABETES MELLITUS PATIENTS IS <7% HBA1C, AND IN SELECTIVE PATIENTS <6.0%. PLEASE REFER TO [place] [employer] DIABETIC CARE GUIDELINES FOR FURTHER INFORMATION. 52 Anion gap measurement may be of limited value in the presence of any alkalosis, especially in a combined acid base disorder. . 53 Because ethnic data is not always readily available, this report includes an eGFR for both -Americans and non- Americans. The National Kidney Disease Education Program (NKDEP) does not endorse the use of the MDRD equation for patients that are not between the ages of 18 and 70, are , have extremes of body size, muscle mass, or nutritional status, or are non- or non-. According to the National Kidney Foundation, irrespective of diagnosis, the stage of the disease is based on the level of kidney function: Stage Description GFR(mL/min/1.73 m(2)) 1 Kidney damage with normal or decreased GFR 90 2 Kidney damage with mild decrease in GFR 60-89 3 Moderate decrease in GFR 30-59 4 Severe decrease in GFR 15-29 5 Kidney failure <15 (or dialysis) 54 THERAPEUTIC TARGET FOR THE TREATMENT OF DIABETES MELLITUS PATIENTS IS <7% HBA1C, AND IN SELECTIVE PATIENTS <6.0%. PLEASE REFER TO [place] [employer] DIABETIC CARE GUIDELINES FOR FURTHER INFORMATION. 55 Anion gap measurement may be of limited value in the presence of any alkalosis, especially in a combined acid base disorder. . 56 Note change in reference range as of 12/09/07. The change was based on recommendations from the [place] [employer]. 57 Please note change in reference range effective 07 . 58 A metabolite of Naproxen, O-desmethylnaproxen, has been shown to interfere with the Jendrassik-Lancaster method for measuring total bilirubin. Samples from patients who have taken Naproxen have shown spurious elevation in total bilirubin levels. 59 Because ethnic data is not always readily available, this report includes an eGFR for both -Americans and non- Americans. The National Kidney Disease Education Program (NKDEP) does not endorse the use of the MDRD equation for patients that are not between the ages of 18 and 70, are , have extremes of body size, muscle mass, or nutritional status, or are non- or non-. According to the National Kidney Foundation, irrespective of diagnosis, the stage of the disease is based on the level of kidney function: Stage Description GFR(mL/min/1.73 m(2)) 1 Kidney damage with normal or decreased GFR 90 2 Kidney damage with mild decrease in GFR 60-89 3 Moderate decrease in GFR 30-59 4 Severe decrease in GFR 15-29 5 Kidney failure <15 (or dialysis) 60 CHOLESTEROL INTERPRETATION: Desirable: Less than 200 MG/DL Borderline-High Risk: 200-239 MG/DL High-Risk: 240 MG/DL and over 61 HDL INTERPRETATION: Undesirable: High Risk: Less than 40 MG/DL Desirable: Low Risk: Greater than 60 MG/DL 62 LDL INTERPRETATION: Low Risk Optimal Level: LDL Less than 100 MG/DL Near or Above Optimal: LDL 100-129 MG/DL Borderline High Risk: LDL 130-159 MG/DL High Risk: LDL 160-189 MG/DL Very High Risk: LDL Greater than 189 MG/DL 63 Anion gap measurement may be of limited value in the presence of any alkalosis, especially in a combined acid base disorder. . 64 Note change in reference range as of 12/09/07. The change was based on recommendations from the [place] [employer]. 65 Please note change in reference range effective 07 . 66 A metabolite of Naproxen, O-desmethylnaproxen, has been shown to interfere with the Jendrassik-Jennifer method for measuring total bilirubin. Samples from patients who have taken Naproxen have shown spurious elevation in total bilirubin levels. 67 Because ethnic data is not always readily available, this report includes an eGFR for both -Americans and non- Americans. The National Kidney Disease Education Program (NKDEP) does not endorse the use of the MDRD equation for patients that are not between the ages of 18 and 70, are , have extremes of body size, muscle mass, or nutritional status, or are non- or non-. According to the National Kidney Foundation, irrespective of diagnosis, the stage of the disease is based on the level of kidney function: Stage Description GFR(mL/min/1.73 m(2)) 1 Kidney damage with normal or decreased GFR 90 2 Kidney damage with mild decrease in GFR 60-89 3 Moderate decrease in GFR 30-59 4 Severe decrease in GFR 15-29 5 Kidney failure <15 (or dialysis) 68 CHOLESTEROL INTERPRETATION: Desirable: Less than 200 MG/DL Borderline-High Risk: 200-239 MG/DL High-Risk: 240 MG/DL and over 69 HDL INTERPRETATION: Undesirable: High Risk: Less than 40 MG/DL Desirable: Low Risk: Greater than 60 MG/DL 70 LDL INTERPRETATION: Low Risk Optimal Level: LDL Less than 100 MG/DL Near or Above Optimal: LDL 100-129 MG/DL Borderline High Risk: LDL 130-159 MG/DL High Risk: LDL 160-189 MG/DL Very High Risk: LDL Greater than 189 MG/DL 71 FASTING 72 * SERUM LEVELS OF PSA MEASURED USING THE ISAEL OVGuide ACCESS HYBRITECH IMMUNOASSAY SHOULD NOT BE INTERPRETED ABSOLUTE EVIDENCE OF THE PRESENCE OR ABSENCE OF DISEASE. THE PSA VALUE SHOULD BE USED IN CONJUNCTION WITH OTHER PERTINENT CLINICAL DIAGNOSTIC PROCEDURES. A PSA value in the range of 0.1 to 0.6 ng/ml is indeterminate if being used as an indicator of recurrent or residual disease. . 73 CHOLESTEROL INTERPRETATION: Desirable: Less than 200 MG/DL Borderline-High Risk: 200-239 MG/DL High-Risk: 240 MG/DL and over 74 HDL INTERPRETATION: Undesirable: High Risk: Less than 40 MG/DL Desirable: Low Risk: Greater than 60 MG/DL 75 LDL INTERPRETATION: Low Risk Optimal Level: LDL Less than 100 MG/DL Near or Above Optimal: LDL 100-129 MG/DL Borderline High Risk: LDL 130-159 MG/DL High Risk: LDL 160-189 MG/DL Very High Risk: LDL Greater than 189 MG/DL 76 Anion gap measurement may be of limited value in the presence of any alkalosis, especially in a combined acid base disorder. . 77 Note change in reference range as of 12/09/07. The change was based on recommendations from the [place] [employer]. 78 Please note change in reference range effective 07 . 79 A metabolite of Naproxen, O-desmethylnaproxen, has been shown to interfere with the Jendrassik-Lancaster method for measuring total bilirubin. Samples from patients who have taken Naproxen have shown spurious elevation in total bilirubin levels. 80 Because ethnic data is not always readily available, this report includes an eGFR for both -Americans and non- Americans. The National Kidney Disease Education Program (NKDEP) does not endorse the use of the MDRD equation for patients that are not between the ages of 18 and 70, are , have extremes of body size, muscle mass, or nutritional status, or are non- or non-. According to the National Kidney Foundation, irrespective of diagnosis, the stage of the disease is based on the level of kidney function: Stage Description GFR(mL/min/1.73 m(2)) 1 Kidney damage with normal or decreased GFR 90 2 Kidney damage with mild decrease in GFR 60-89 3 Moderate decrease in GFR 30-59 4 Severe decrease in GFR 15-29 5 Kidney failure <15 (or dialysis) 81 PATIENT MAY HAVE RESULTS PER DOCTOR'S AUTHORIZATION. Questions regarding this report should be directed to your doctor. 82 CHOLESTEROL INTERPRETATION: Desirable: Less than 200 MG/DL Borderline-High Risk: 200-239 MG/DL High-Risk: 240 MG/DL and over 83 HDL INTERPRETATION: Undesirable: High Risk: Less than 40 MG/DL Desirable: Low Risk: Greater than 60 MG/DL 84 LDL INTERPRETATION: Low Risk Optimal Level: LDL Less than 100 MG/DL Near or Above Optimal: LDL 100-129 MG/DL Borderline High Risk: LDL 130-159 MG/DL High Risk: LDL 160-189 MG/DL Very High Risk: LDL Greater than 189 MG/DL 85 Anion gap measurement may be of limited value in the presence of any alkalosis, especially in a combined acid base disorder. . 86 Classification: Desirable . 87 Classification: Low . 88 CALCULATED LDL APPROXIMATES THE VALUE OF A DIRECT LDL MEASUREMENT. Classification: Optimal Level . 89 * SERUM LEVELS OF PSA MEASURED USING THE ISAEL OVGuide ACCESS HYBRITECH IMMUNOASSAY SHOULD NOT BE INTERPRETED ABSOLUTE EVIDENCE OF THE PRESENCE OR ABSENCE OF DISEASE. THE PSA VALUE SHOULD BE USED IN CONJUNCTION WITH OTHER PERTINENT CLINICAL DIAGNOSTIC PROCEDURES. A PSA value in the range of 0.1 to 0.6 ng/ml is indeterminate if being used as an indicator of recurrent or residual disease. . Procedures Date CPT Code Description Status 03/03/2018 17591 EKG Tracing & Interpretation Completed 07/07/2017 39058 Repair Immediate Wound 2.6-7.5CM Completed Scalp/Axillae/Trunk/Extremities 07/07/2017 39382 Excise Benign Lesion > 4CM Trunk/Arm/Leg Completed 06/29/2017 23505 Biopsy Skin Lesion Single Completed 01/12/2017 16452 EKG Tracing & Interpretation Completed 01/11/2016 29890 ECHO Transthorasic Realtime 2D W Doppler & Color Flow Completed Hosp 01/10/2016 33948 EKG Tracing & Interpretation Completed 01/03/2016 11406 EKG, Interpretation Only Completed 01/02/2016 90695 Left Heart Cath. Incl S/I Coronaries, Angio S/I V Gram Completed If Done 01/02/2016 99426 Treadmill Interp/Report Only Completed 01/02/2016 56496 Stress Test Supervsn W/Out I/R Completed 01/02/2016 99682 EKG, Interpretation Only Completed 01/02/2016 36702 Percutaneous Transcatheter Placement Of Intracoronary Completed Stent 02/13/2011 Colonoscopy Completed 11/21/2008 37606 EKG Tracing & Interpretation Completed 1955 Colonoscopy Completed Encounters Type Date Location Provider CPT E/M Dx Office Visit 06/29/2017 4:00p [facility] [place] [address] D17.1 D22.5 D18.01 L98.9 Office Visit 06/18/2017 2:15p [facility] Danial Desai 12130 S46.012A Of Car Ortiz MD M75.52 Office Visit 01/26/2017 10:20a [facility] Internal Medicine Jamel Pascal, 26286 J06.9 - Jennifer Farias Office Visit 01/12/2017 3:40p [facility] Sebastian Gipson M.D., 66578 I25.10 [facility] AT [facility], FSCAI E78.2 Office Visit 07/09/2016 3:40p [facility] Sebastian Gipson M.D., 13525 I25.110 [facility] AT [facility], FSCAI E78.2 Office Visit 01/15/2016 2:00p [facility] Internal Medicine - Jamel Pascal, 13097 R06.02 Jennifer Farias Office Visit 01/11/2016 12:28p [facility], [place] [address] R07.9 Hospitalists R06.02 I25.10 Office Visit 01/10/2016 1:40p [facility] Sebastian Gipson M.D., 58755 I25.119 [facility], [facility] E78.2 Z48.812 Office Visit 01/07/2016 11:20a [facility] Internal Medicine Jamel Pascal, 83388 I25.10 - Jennifer Farias Z11.59 Office Visit 01/03/2016 12:29p [facility], Laruie Roberson, 63108 I25.119 Real Farias E78.2 Office Visit 01/03/2016 2:44p [facility] Sebastian Gipson, 25342 Z48.812 [facility], [facility] Office Visit 01/02/2016 12:29p [facility], Hugo Montero M.D. 94745 R07.9 Hospitalists E78.2 Office Visit 08/30/2015 2:00p [facility] Internal Medicine Jamel Pascal, 39922 Z00.00 - Frances Farias E78.0 R73.01 M10.9 Office Visit 07/19/2014 3:00p [facility] Internal Medicine Jamel Pascal, 80436 V70.0 - Frances Farias 272.0 790.21 274.9 Office Visit 07/13/2013 3:00p [facility] Internal Medicine Jamel Pascal 38149 V70.0 - Frances Farias 272.0 274.9 796.2 790.21 Office Visit 06/30/2012 2:00p [facility] Internal Medicine Jamel Pascal, 40509 V70.0 - Frances Farias 272.2 790.21 274.9 Office Visit 05/14/2011 3:00p [facility] Internal Medicine Jamel Pascal, 55636 V70.0 - [facility] 272.2 790.21 274.9 Office Visit 06/19/2010 3:20p DO Not Use [employer] AT [facility], 94988 272.0 [facility] 790.21 274.9 796.2 Office Visit 11/21/2009 1:40p DO Not Use [employer] AT [facility], 74979 272.0 [facility] 790.21 274.9 796.2 Office Visit 11/15/2009 8:40a DO Not Use [employer] AT Nurse Visits - 89891 272.2 [facility] 272.0 780.2 Office Visit 05/24/2009 2:00p DO Not Use [employer] AT [facility], 93281 796.2 [facility] 272.0 274.9 Office Visit 11/21/2008 1:30p [facility] AT [facility], 25171 796.2 [facility] 272.0 Office Visit 02/28/2008 3:00p [facility] AT [facility], 45431 719.46 [facility] Visit 11/17/2007 3:30p [facility] AT [facility], 34095 272.0 [facility].D. Office Visit 05/18/2007 3:00p [facility] AT [facility], 98874 272.0 [facility].D. Plan of Care Future Appointment(s):08/24/2018 3:40 pm - Jamel Pascal M.D. at [facility] Internal Medicine - Cpzpacfbl61/14/2018 - Devante Davidson, DO FACCI25.10 [facility] [place] coronary artery w/o ang pctrsFollow up:f/u 18 tbypyzF82.5 Hyperlipidemia, lpnlrselobyS81 Essential (primary) hypertension
--- OUTSIDE RECORDS SUMMARY | 2018-03-08 08:13 | XMS REPORT ---
:1955 External Reference #:[id number] Author Organization [employer] Address [address] [place] [address] [place] [address] Phone [phone] Care Team Providers Name Role Phone Jamel Pascal III, MD Primary Care Physician Unavailable Payers Type Date Identification Numbers Payment Provider Subscriber Commercial Effective: Policy Number: BS Trish Romero 2011 [id number] PayID: [id number] [address] [address] [employer] [place] [address] Medigap Part B Effective: 2009 Policy Number: BS Of JOEL Romero [id number] Expires: 2011 PayID: [id number] [address] [address] [employer] [address] Problems Date Description Provider Status Onset: 05/14/2011 Mixed hyperlipidemia Jamel Pascal M.D. Active Onset: 05/14/2011 Impaired fasting glycaemia Jamel Pascal M.D. Active Onset: 05/14/2011 Gout Jamel Pascal M.D. Active Onset: 07/13/2013 Pure hypercholesterolemia Jamel Pascal M.D. Active Onset: 01/10/2016 [facility] [place] Sebastian Gipson M.D., 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, [facility] Aspir-81 / Active Tablets DR 81mg 90tabs 1 by Jamel Rivers 0000 mouth Naida, every day M.D. Atorvastatin / Active Tablets 80mg 90tabs 1 by Devante Virk Calcium 0000 mouth Davidson, DO every day [facility] Nitroglycerin / Active Tablets 0.4mg 14tabs 1 under Sebastian 0000 Sub tongue, Stefek, august.D., repeat 3x [facility], [facility] Amlodipine / Active Tablets 5mg 90tabs 1 by Devante Virk Besylate 0000 mouth Davidson, DO every day [facility] Brilinta 01/12/ Hx Tablets 60mg 60tabs 1 tab by Sebastian 2016 - mouth Stejulien, 01/23/ twice a M.D., [address] [facility], [facility] Lipitor 07/13/ Hx Tablets 20mg 30tabs [...] not take as of 01/07/[address] Naida ZARATE) Aspirin / Hx Tablets 81mg 1 PO qd Victor Manuel 0000 - MD Alfredo 2015 Lipitor / Hx Tablets 40mg 30tabs 1 po hs Jamel VelázquezTorito 0000 - Naida, 07/13/ M.DTorito 2013 Brilinta / Hx Tablets 90mg 180tab 1 tab by Sebastian 0000 - s mouth Brandan, 01/12/ twice a M.D., 2016 [facility], [facility] Immunizations CPT Code Status Date Vaccine Lot # [id number] Given 02/24/2018 Tdap - Tetanus/Diptheria/Acellular Pertussis [id number] Given 02/24/2018 Influenza Virus Vaccine, Quadrivalent, Split, [id number] Preservative Free 34044 Given 06/09/2006 Td (History By Patient) Vital Signs Date Vital Result Comment 02/24/2018 Height 67 inches 5'7" Weight 248.00 [...] mg/dL 23 LDL Cholesterol 87 mg/dL 24 Laboratory test finding 08/24/2015 Hemoglobin A1c (Glyco 5.8 % Less than 6.0 25 HGB) Uric Acid 7.0 mg/dL 4.4-7.6 Comp Metabolic Panel 08/24/2015 Sodium 140 mmol/L [...] Egfr Non- 66.4 >60 Egfr 85.4 >60 26 Laboratory test finding 07/14/2014 Hemoglobin A1c 5.8 [...] 32 LDL Cholesterol 93 mg/dL 27, 33 DR Pascal's Lab Panel 07/08/2013 TSH (Thyroid Stimulating 0.64 IU/mL 0.34 -5.60 Horm) Comp Metabolic Panel 07/08/2013 Sodium 140 mmol/L [...] Egfr Non- 66.9 >60 Egfr 86.0 >60 34 Lipid Profile (Trig/Chol/HDL) 07/08/2013 Triglycerides 154 mg/dL 35 Cholesterol 127 mg/dL 36 HDL Cholesterol 28.8 mg/dL 37 LDL Cholesterol 67 mg/dL 38 CBC With Manual Diff 07/08/2013 White Blood [...] 1 % 0-6 RBC Morphology Normal Normal Throat-Beta Strept 03/24/2013 Throat Beta Strep (SEE NOTE) 39 Culture Throat-Beta Strept 09/14/2012 Throat Beta Strep (SEE NOTE) 40 Culture BMP Basic Metabolic Panel 06/28/2012 Sodium 140 mmol/L 133-145 Potassium 4.3 mmol/L 3.5-5.0 Chloride 110 mmol/L [...] Count 3.5 Anisocytosis SLIGHT Platelet Evaluation LARGE Laboratory test finding 05/21/2009 TSH 0.48 MIU/ML 0.34-5.60 CBC With Manual Diff 05/21/2009 White Blood [...] Less Than 100 70 Laboratory test finding 02/07/2009 Uric Acid 6.5 [...] 0-0.6 71 Abs Basophils 0 0-0.2 71 Lipid Profile (Trig/Chol/HDL) 11/11/2007 Triglyceride 195 mg/dL 40-200 81 Cholesterol 160 mg/dL Less Than 200 81, 82 High Density Lipoprotein 31 mg/dL Low 40-60 81, 83 Cholesterol/HDL Ratio 5.16 AVERAGE High 1-4.97 81 Low Density Lipoprotein 90 mg/dL Less Than 100 81, 84 Liver Function Panel 11/11/2007 Total Protein 6.7 GM/DL 6.2-8.1 81 Albumin 4.2 GM/DL 3.6-5.4 81 Globulin 2.5 GM/DL 2-4 81 Albumin/Globulin Ratio 1.7 1-3 81 Bilirubin Total 0.6 mg/dL 0.4-1.5 81 Bilirubin Direct 0.2 mg/dL 0.1-0.5 81 Indirect Bilirubin 0.4 mg/dL 0.1-0.75 81 Alkaline Phosphatase 100 U/L 39-117 81 Alt (SGPT) 43 U/L 17-63 81 Ast (Sgot) 36 U/L 12-42 81 CBC W/ Electronic Diff 05/13/2007 White Blood [...] 4.6-6.2 Redcell Distribution WDTH 13 % 10.5-15 Comp Metabolic Panel 05/13/2007 One Over Creatinine [...] NG/ML 0-4 89 TSH 0.36 MIU/ML 0.34-5.60 1 Because ethnic data is not always [...] 0.03 ng/mL Not supportive of diagnosis of LA 0.03 - 0.50 ng/mL Indeterminate: suggest serial studies if clinically indicated. Greater than 0.5 ng/mL Consistent with diagnosis of LA 16 Because ethnic data is not always [...] 5 Kidney failure <15 (or dialysis) 17 [facility] Severe Sepsis and Septic Shock Management Bundle Measure requires all lactic acids initially measuring >2.0 mmol/L be repeated. 18 Reference Range and Interpretation: TnI (ng/mL) Interpretation Less Than 0.03 ng/mL Not supportive of diagnosis of LA 0.03 - 0.50 ng/mL Indeterminate: suggest serial studies if clinically indicated. Greater than 0.5 ng/mL Consistent with diagnosis of LA 19 Because ethnic data is not always [...] 0.03 ng/mL Not supportive of diagnosis of LA 0.03 - 0.50 ng/mL Indeterminate: suggest serial studies if clinically indicated. Greater than 0.5 ng/mL Consistent with diagnosis of LA 21 Desirable <150 Borderline high 150-199 High 200-499 Very High >500 22 Desirable <200 Borderline high 200-239 High >239 23 Low <40 Desirable: 40-60 High: >60 24 Desirable: <100 mg/dL Near Optimal: 100-129 mg/dL Borderline High: 130-159 mg/dL High: 160-189 mg/dL Very High: >189 mg/dL 25 Therapeutic target for the treatment of diabetes Mellitus patients is <7% HBA1C, and in selective patients <6.0%.Please refer to [place] [employer] Diabetic care guidelines for further information. 26 Because ethnic data is not always readily [...] 15-29 5 Kidney failure <15 (or dialysis) 27 FASTING 10 HOUR 28 Therapeutic target for the treatment of diabetes Mellitus patients is <7% HBA1C, and in selective patients <6.0%.Please refer to [place] [employer] Diabetic care guidelines for further [...] 160-189 mg/dL Very High: >189 mg/dL 34 Because ethnic data is not always readily [...] 15-29 5 Kidney failure <15 (or dialysis) 35 Desirable <150 Borderline high 150-199 High 200-499 Very High >500 36 Desirable <200 Borderline high 200-239 High >239 37 Low <40 Desirable: 40-60 High: >60 38 Desirable <100 Near Optimal 100-129 Borderline high 130-159 High 160-189 Very High >189 39 RUN DATE: 03/26/13 [facility] LAB LIVE PAGE 1 RUN TIME: [address] [place] [address] Specimen Inquiry Name: MOOSE ROMERO : [address]: Mario Sage MD Acct: [id number] Unit: [id number] AGE: 57 Location: [facility] Re03/24/13 SEX: M Status: DEP ER SPEC: [id number] MARYURI: 03/24/[address] [facility] DR: Mario Sage MD REQ: [id number] RECD: 03/24/13 STATUS: MIKKI TURCIOS DR: REIN Pascal III, MD _ SOURCE: THROAT SPDESC: ORDERED: Throat Beta Str Procedure Result Verified Site Throat Beta Strep Culture Final 03/26/13810 ML Negative For Group A Beta Streptococcus END OF REPORT * ML=Testing performed at Main Lab DEPARTMENT OF PATHOLOGY, [facility] [employer] [place], [place] [address] Ino Marcial M.D. Director [facility] Permit #[id number] RUN DATE: 09/16/12 [facility] LAB LIVE PAGE 1 RUN TIME: [address] [place] [address] Specimen Inquiry Name: MOOSE ROMERO : [address]: Sheri Arizmendi MD Acct: [id number] Unit: [id number] AGE: 56 Location: [facility] Re09/14/12 SEX: M Status: DEP ER SPEC: [id number] MARYURI: 09/14/[address] [facility] DR: Sheri Arizmendi MD REQ: [id number] RECD: 09/14/129 STATUS: MIKKI TURCIOS DR: Jamel Pascal III, MD _ SOURCE: THROAT SPDESC: ORDERED: Throat Beta Str Procedure Result Verified Site Throat Beta Strep Culture Final 09/16/12- 817 ML Negative For Group A Beta Streptococcus END OF REPORT * ML=Testing performed at Main Lab DEPARTMENT OF PATHOLOGY, [address] [place] [address] Ino Marcial M.D. Director [facility] Permit #[id number] 41 Because ethnic data is not always [...] and in selective patients <6.0%.Please refer to [place] [employer] Diabetic care guidelines for further information. 45 Anion gap measurement may be of limited value in the presence of any alkalosis, especially in a combined acid base disorder. . 46 A metabolite of Naproxen, O-desmethylnaproxen, has been shown to interfere with the Jendrassik-Redvale method for measuring total bilirubin. Samples from [...] IN SELECTIVE PATIENTS <6.0%. PLEASE REFER TO [place] [employer]ATION DIABETIC CARE GUIDELINES FOR FURTHER [...] IN SELECTIVE PATIENTS <6.0%. PLEASE REFER TO [place] [employer] DIABETIC CARE GUIDELINES FOR FURTHER INFORMATION. 55 Anion gap measurement may be of limited value in the presence of any alkalosis, especially in a combined acid base disorder. . 56 Note change in reference range as of 12/09/07. The change was based on recommendations from the [place] [employer]. 57 Please note change in [...] change was based on recommendations from the [place] [employer]. 65 Please note change in reference range effective 07 . 66 A metabolite of Naproxen, O-desmethylnaproxen, has been shown to interfere with the Jendrassik-Redvale method for measuring total bilirubin. Samples from [...] SERUM LEVELS OF PSA MEASURED USING THE [employer] ACCESS HYBRITECH IMMUNOASSAY SHOULD NOT BE INTERPRETED [...] change was based on recommendations from the [place] [employer]. 78 Please note change in [...] LEVELS OF PSA MEASURED USING THE [employer] ACCESS HYBRITECH IMMUNOASSAY SHOULD NOT BE INTERPRETED ABSOLUTE EVIDENCE OF THE PRESENCE OR ABSENCE OF DISEASE. THE PSA VALUE SHOULD BE USED IN CONJUNCTION WITH OTHER PERTINENT CLINICAL DIAGNOSTIC PROCEDURES. A PSA value in the range of 0.1 to 0.6 ng/ml is indeterminate if being used as an indicator of recurrent or residual disease. . Procedures Date CPT Code Description Status 07/07/2017 45700 Repair Immediate Wound 2.6-7.5CM Completed Scalp/Axillae/Trunk/Extremities 07/07/2017 30943 Excise Benign Lesion > 4CM Trunk/Arm/Leg Completed 06/29/2017 42809 Biopsy Skin Lesion Single Completed 01/12/2017 19831 EKG Tracing & Interpretation Completed 01/11/2016 52635 ECHO Transthorasic Realtime 2D W Doppler & Color Flow Completed Hosp 01/10/2016 14953 EKG Tracing & Interpretation Completed 01/03/2016 96725 EKG, Interpretation Only Completed 01/02/2016 35455 Left Heart Cath. Incl S/I Coronaries, Angio S/I V Gram Completed If Done 01/02/2016 35559 Treadmill Interp/Report Only Completed 01/02/2016 56874 Stress Test Supervsn W/Out I/R Completed 01/02/2016 52845 EKG, Interpretation Only Completed 01/02/2016 39927 Percutaneous Transcatheter Placement Of Intracoronary Completed Stent 02/13/2011 Colonoscopy Completed 11/21/2008 98466 EKG Tracing & Interpretation Completed 1955 Colonoscopy Completed Encounters Type Date Location Provider CPT E/M Dx Office Visit 06/29/2017 4:00p [facility] [place] [address] D17.1 D22.5 D18.01 L98.9 Office Visit 06/18/2017 2:15p [facility]opedic Services Danial F 20009 S46.012A Of Car Ortiz MD M75.52 Office Visit 01/26/2017 10:20a [facility] Internal Medicine Jamel Pascal, 31918 J06.9 - Jennifer Farias Office Visit 01/12/2017 3:40p [facility] Regi Gipson M.D., 48179 I25.10 [facility] AT [facility], FSCAI E78.2 Office Visit 07/09/2016 3:40p [facility] Regi Gipson M.D., 36549 I25.110 [facility] AT [facility], FSCAI E78.2 Office Visit 01/15/2016 2:00p [facility] Internal Medicine - Jamel Pascal, 07051 R06.02 Jennifer Farias Office Visit 01/11/2016 12:28p [facility] [address] R07.9 Hospitalists R06.02 I25.10 Office Visit 01/10/2016 1:40p [facility] Of Sebastian Gipson M.D., 61016 I25.119 [employer] AT [facility], [facility] E78.2 Z48.812 Office Visit 01/07/2016 11:20a [facility] Internal Medicine Jamel Pascal, 96301 I25.10 - Jennifer Farias Z11.59 Office Visit 01/03/2016 12:29p [facility] [place], Laurie Roberson, 93787 I25.119 [facility] Dinora E78.2 Office Visit 01/03/2016 2:44p [facility] Sebastian Gipson, 54039 Z48.812 [employer] AT [facility] [place], [facility], [facility] Office Visit 01/02/2016 12:29p [facility] [place], Hugo Montero M.D. 64808 R07.9 Hospitalists E78.2 Office Visit 08/30/2015 2:00p [facility] Internal Medicine Jamel Pascal, 89308 Z00.00 - Frances Farias E78.0 R73.01 M10.9 Office Visit 07/19/2014 3:00p [facility] Internal Medicine Jamel Pascal, 82096 V70.0 - Frances Farias 272.0 790.21 274.9 Office Visit 07/13/2013 3:00p [facility] Internal Medicine Jamel Pascal 14224 V70.0 - Frances Farias 272.0 274.9 796.2 790.21 Office Visit 06/30/2012 2:00p [facility] Internal Medicine Jamel Pascal 71646 V70.0 - Frances Farias 272.2 790.21 274.9 Office Visit 05/14/2011 3:00p [facility] Internal Medicine Jamel Pascal 28855 V70.0 - Frances Farias 272.2 790.21 274.9 Office Visit 06/19/2010 3:20p DO Not Use [employer] AT Jamel Pascal, 12427 272.0 Karishma Farias 790.21 274.9 796.2 Office Visit 11/21/2009 1:40p DO Not Use [employer] AT Jamel Pascal, 94427 272.0 [facility] 790.21 274.9 796.2 Office Visit 11/15/2009 8:40a DO Not Use [employer] AT Nurse Visits - 70983 272.2 [facility] 272.0 780.2 Office Visit 05/24/2009 2:00p DO Not Use [employer] AT [facility], 91806 796.2 [facility] 272.0 274.9 Office Visit 11/21/2008 1:30p [facility] AT [facility], 18381 796.2 [facility] 272.0 Office Visit 02/28/2008 3:00p [facility] AT [facility], 04969 719.46 [facility]. Office Visit 11/17/2007 3:30p [facility] AT [facility], 98362 272.0 [facility] 05/18/2007 3:00p [facility] AT [facility], 49187 272.0 [facility]. Plan of Care Future Appointment(s):08/24/2018 3:40 pm - Jamel Pascal M.D. at [facility] Internal Medicine - Kghoylijn19/07/2018 - Jamel Pascal M.D.Z00.00 Encntr for general adult medical exam w/o abnormal findingsComments:Flu shot and Tdap today; discussed the new shingles vaccine. (+) dental, eye exams. Colon exam current.I10 Essential (primary) hypertensionComments:BPs good; continue Rx, occ home BP checks. Diet, weight loss, and regular aerobic exercise advised.Follow up:6 months or prnE78.00 Pure hypercholesterolemia, unspecifiedComments:On RxR73.01 Impaired fasting glucoseComments:Normal this year on diet RxM10.9 Gout , unspecifiedComments:No recurrent sx on Allopurinol RxI25.119 [facility] heart disease of [place] art w unsp ang pctrsComments:Follows with cardiology; no cardiac c/o. Importance of regular aerobic exercise for cardiac risk reduction mgpcmhjaM13.6 Tinea crurisNew Medication:Ciclopirox 0.77 %Comments:Fungal groin rash; Rx sent in.
[2018-03-08] MEDS ORDERED: Morphine VIAL* 4 MG/ML VIAL (1 ml vial) IV PRN (09:34)
[2018-03-08] MEDS ORDERED: NS 0.9% 1000 ML* 1,000 ML IV SCH (09:45)
[2018-03-08] MEDS: Nitroglycerin 0.3 MG/HR PATCH* (7.5 MG) TRANSDERM SCH (09:47)
[2018-03-08] MEDS ORDERED: Aspirin 81 mg CHEW TAB* 81 MG TAB.CHEW PO SCH ×2 (10:00→21:39)
[2018-03-08] MEDS: Enoxaparin(*) 40 MG/0.4 ML SYR SUBCUT SCH (10:26)
[2018-03-08] MEDS ORDERED: Regadenoson* 0.4 MG/5 ML SYRINGE ONE (13:07)
--- NOTE | 2018-03-08 15:19 | HP ---
ADMITTING HISTORY AND PHYSICAL: DATE OF ADMISSION: 03/08/18. CHIEF COMPLAINT: Chest pain. HISTORY OF PRESENT ILLNESS: The patient is a 62-year-old gentleman with history of hypertension, hyperlipidemia, and coronary artery disease status post drug-eluting stent placed in his mid LAD back in 2016 who presented with the above chief complaint. He mentions that he was in his usual state of health since his last discharge from our facility back in 2015 and has not had any admissions to any other hospital since. He mentions that he was recently seen by Dr. Davidson, his new work study student that took over Dr. Gipson's service at least for him last Thursday where he mentioned he was evaluated by a history and physical exam as well as EKG and was told that everything was fine. Three or four days later, he started shoveling and cleaning his driveway of snow and did not have any symptoms. The following day, he mentioned that while sitting and watching TV, he started having some substernal chest pain he describes as a heavy pain and the patient is unable to identify any alleviating nor exacerbating factors. At that time, he felt that the pain was nonradiating. However, by midnight, a few hours prior to admission, the patient started noticing that the pain seems to be travelling to his bilateral jawline. However , it is only very mild at around 1-2/10 in the pain scale. He denied any other symptoms. REVIEW OF SYSTEMS: Chest pain as described above. Denied any headaches, dizziness, fevers, chills, nausea, vomiting, shortness of breath, increased cough, no sputum production, abdominal pain, diarrhea, constipation, pain, and/ or increased frequency on urination, myalgias, arthralgias, throat pain, or new skin lesions. The rest of the 14-point review of systems other than what was described are unremarkable. PAST MEDICAL AND SURGICAL HISTORY: 1. Coronary artery disease status post drug-eluting stent placement to his mid LAD. 2. Gout. 3. Hyperlipidemia. 4. Hypertension. 5. Obesity. MEDICATIONS: His current home medications are: 1. Amlodipine 5 mg p.o. daily. 2. Allopurinol 100 mg p.o. daily. 3. Nitroglycerin 0.4 mg sublingual q.5 minutes p.r.n. 4. Atorvastatin 80 mg p.o. daily. 5. Aspirin 81 mg p.o. daily. ALLERGIES: NKDA. FAMILY HISTORY: The patient denied any history of coronary artery disease, cancer, diabetes, or hyperlipidemia nor stroke. 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 He denied any history of tobacco, alcohol nor illicit drug use and he has one grown child. CODE STATUS: Full. PHYSICAL EXAMINATION GENERAL APPEARANCE : The patient is awake, alert and oriented x3, not in acute distress. VITAL SIGNS: Shows the most recent vital signs of records with blood pressure of 137/78, 55 beats per minute heart rate, 13 per minute respiratory rate, saturating at 94% room air. HEENT: Normocephalic, atraumatic. PERRLA. Extraocular muscles intact. Negative for icterus, moist oral mucosa, negative throat erythema. NECK: Soft, supple with no cervical lymphadenopathy. No JVD. HEART: S1, S2 within normal limits, regular rate and rhythm with no murmurs, rubs and gallops. CHEST: Clear to auscultation bilaterally. Good air entry. No wheezes, rales or rhonchi. ABDOMEN: Soft, nondistended, nontender. Normoactive bowel sounds 4x q. extremities, no cyanosis, clubbing, or edema. PSYCHIATRIC: No active psychosis, depression, suicidal or homicidal ideations. SKIN: Warm to touch. DIAGNOSTIC STUDIES/LAB DATA: Most recent and pertinent laboratories drawn today shows CBC with a normal WBC, H and H as well as platelet count. Sodium and potassium as well as BUN and creatinine were also found to be normal. LFTs were normal. BNP is normal at 68. D-dimer of less than 200. Chest x-ray shows no acute disease process. EKG shows normal sinus rhythm, 58 beats per minute with no ST segment changes. ASSESSMENT AND PLAN: The patient is a 62-year-old gentleman with history of hypertension, gout, and coronary artery disease status post drug- eluting stent to his mid left anterior descending back in 2016, admitted for atypical chest pain. 1. Atypical chest pain. Despite his GUILLERMINA score being only 2, given his significant known cardiac history, we will admit patient for observation. I will have to trend his troponin as well as to obtain an update of his echocardiogram and a stress test. The patient has already been ruled out for venous thromboembolism given level of D-dimer just described above. We will continue to trend troponins and we will place patient on telemetry. The patient is to continue at this time on aspirin and atorvastatin. Patient not on beta-meng likely due to baseline sinus bradycardia at around 55. We will continue watchful waiting. 2. Coronary artery disease. Continue aspirin and statin as described above. As discussed, patient likely not on beta-meng given sinus bradycardia. We will wait for 2-D echo update as well as stress test. 3. Sinus bradycardia, asymptomatic. We will continue watchful waiting. 4. Hypertension, well controlled, continue amlodipine. 5. Gout, well controlled, continue allopurinol. 6. Deep vein thrombosis prophylaxis. We will place patient on Lovenox for deep vein thrombosis prophylaxis. 7. Disposition: As above for possible discharge in the a.m. if all above workup does not suggest a cardiac coronary artery disease problem and we will defer with covering hospitalist in the a.m. [id number]/[facility] #: [id number] JUNIOR
[2018-03-08] MEDS ORDERED: Acetaminophen TAB* 325 MG PO PRN (16:52)
--- NOTE | 2018-03-08 17:22 | ECHO ---
Patient: MOOSE MCKEE [facility] [place] Rec#: [id number] : 1955 Date: 03/08/2018 Age: 62y Height: 172.7 cm / 68.0 in Weight: 111.1 kg / 244.9 lbs Sex: M BSA: 2.2 Room#: [facility] Admit Date#: 03/08/2018 Type: Inpatient Referring: Igor Osborne Reading: Willian Gomez MD Owner Consulting Engineer: Nirmala Guardado RN RDCS CC: Jamel Pascal MD Transthoracic Echocardiogram Indication: Chest pain BP: 120/75 HR: 61 Rhythm: NSR Findings History: Angina, PCI, HLD Technical Comments: The study quality is fair. The study is technically limited due to patient body habitus. Left Ventricle: The left ventricular chamber size is normal. Mild to moderate concentric left ventricular hypertrophy is observed. Global left ventricular wall motion and contractility are within normal limits. There is normal left ventricular systolic function. The estimated ejection fraction is 55-60%. There is an E to A reversal in the mitral valve flow pattern suggestive of diastolic dysfunction. Left Atrium: The left atrial chamber size is normal. Right Ventricle: The right ventricular cavity size is normal. The right ventricular global systolic function is normal. Right Atrium: The right atrial cavity size is normal. Aortic Valve: The aortic valve is trileaflet. The aortic valve leaflets are mildly thickened. There is no evidence of aortic regurgitation. There is no evidence of aortic stenosis. Mitral Valve: The mitral valve leaflets are mildly thickened. There is a trace of mitral regurgitation. There is no evidence of mitral stenosis. Tricuspid Valve: The tricuspid valve leaflets are normal. There is trace tricuspid regurgitation. Unable to estimate the right ventricular systolic pressure. There is no tricuspid stenosis. Pulmonic Valve: The pulmonic valve appears normal. There is a trace pulmonic regurgitation. There is no pulmonic stenosis. Pericardium: There is no significant pericardial effusion. A pericardial fat pad is visualized. Aorta: There is no dilatation of the ascending aorta. The aortic arch is not well visualized. There is no dilation of the aortic root. Pulmonary Artery: The main pulmonary artery appears normal. Venous: The venous system is not well visualized. The inferior vena cava is not visualized. Summary: There are no significant changes when compared to the previous study done on 01/11/16 Conclusions Mild to moderate concentric left ventricular hypertrophy is observed. Global left ventricular wall motion and contractility are within normal limits. There is normal left ventricular systolic function. The estimated ejection fraction is 55-60%. There is no evidence of aortic stenosis. There is a trace of mitral regurgitation. There is trace tricuspid regurgitation. Unable to estimate the right ventricular systolic pressure. There is no significant pericardial effusion. Measurements Name Value Normal Range RVDdMajor (2D) 4 cm (2.2 - 4.4) RAd ISD 4CH 4.8 cm (3.4 - 4.9) RA (A4C)W 3.5 cm (2.9 - 4.6) IVSd (2D) 1.3 cm (0.6 - 1) LVPWd (2D) 1.2 cm (0.6 - 1) LVIDd (2D) 4.2 cm (3.6 - 5.4) LVIDs (2D) 2.7 cm - LV FS (2D) 36 % (25 - 45) Aortic Annulus 2.2 cm (1.4 - 2.6) Ao root diameter (2D) 3.3 cm (2.1 - 3.5) Ascending Ao 3.2 cm (2.1 - 3.4) Aortic arch 2.9 cm (1.8 - 3.4) LA dimension (AP) 2D 4.5 cm (2.3 - 3.8) LAd ISD 4CH 5 cm (2.9 - 5.3) LA ISD 4CH W 3.9 cm (2.5 - 4.5) Name Value Normal Range LA ESV SP 4CH (A/L) 75 ml - LA ESV SP 2CH (A/L) 69 ml - LA ESV BP (A/L) 72 ml - LA ESV BP (A/L) index 32.3 ml/m2 - LA ESV SP 4CH (MOD) 69 ml - LA ESV SP 2CH (MOD) 65 ml - Name Value Normal Range MV E-wave Vmax 0.6 m/sec - MV deceleration time 362 msec - MV A-wave Vmax 1 m/sec - MV E:A ratio 0.6 ratio - LV septal e' Vmax 0.06 m/sec - LV lateral e' Vmax 0.07 m/sec - LV E:e' septal ratio 10 ratio - LV E:e' lateral ratio 8.6 ratio - Name Value Normal Range AV Vmax 1.3 m/sec - AV VTI 24.7 cm - AV peak gradient 6 mmHg - AV mean gradient 4 mmHg - LVOT Vmax 0.97 m/sec - LVOT VTI 21.2 cm - LVOT peak gradient 4 mmHg - LVOT mean gradient 2 mmHg - VERÓNICA Vmax 0.96 m/sec - Name Value Normal Range PV Vmax 1 m/sec -
[2018-03-08] MEDS ORDERED: Nitro Patch/OINT Remove PATCH OFF SCH (21:00)
[2018-03-08] MEDS ORDERED: Atorvastatin* 80 MG TAB PO SCH (21:40)
[2018-03-09 07:11] LABS: Hematocrit 46 % (42-52); Hemoglobin 15.8 g/dl (14.0-18.0); Mean Corpuscular HGB Conc 34 g/dl (31-36); Mean Corpuscular Hemoglobin 31 pg (27-31); Mean Corpuscular Volume 90 fL (80-94); Mean Platelet Volume 10.6 fL (7.4-10.4); Platelet Count 173 10^3/ul (150-450); Red Blood Count 5.12 10^6/ul (4.00-5.40); Red Cell Distribution Width 13 % (10.5-15); White Blood Count 8.3 10^3/ul (3.5-10.8)
[2018-03-09 07:27] LABS: EGFR Non-African American 76.6 (>60)
[2018-03-09] MEDS ORDERED: Atorvastatin* 80 MG TAB PO SCH (09:00)
[2018-03-09] MEDS ORDERED: amLODIPine TAB* 5 MG PO SCH (09:00)
[2018-03-09] MEDS ORDERED: Allopurinol TAB* 100 MG PO SCH (09:00)
[2018-03-09 09:07] VITALS: BP 140/69
[2018-03-09] MEDS: Nitroglycerin 0.3 MG/HR PATCH* (7.5 MG) TRANSDERM SCH (09:08)
[2018-03-09] MEDS: Enoxaparin(*) 40 MG/0.4 ML SYR SUBCUT SCH (09:08)
--- NOTE | 2018-03-10 01:58 | DS ---
CC: Jamel Pascal MD; Devante Davidson DO * DISCHARGE SUMMARY: DATE OF ADMISSION: 03/08/18 DATE OF DISCHARGE: 03/09/18 PRIMARY CARE PROVIDER: Jamel Pascal MD INVESTOR RELATIONS DIRECTOR: Devatne Davidson DO PRINCIPAL DIAGNOSES: 1. Noncardiac chest pain. 2. Hypertension. SECONDARY DIAGNOSES: 1. Gout. 2. Coronary artery disease. DISCHARGE MEDICATIONS: 1. Allopurinol 100 mg p.o. daily. 2. Amlodipine 5 mg p.o. daily. 3. Lipitor 80 mg p.o. daily. 4. Aspirin 81 mg p.o. daily. 5. Nitroglycerin 0.4 mg SL q. 5 minutes p.r.n. chest pain. HOSPITAL COURSE: Mr. Romero is a 62-year-old male who has a history of coronary artery disease status post stent in 2015, who presented to the emergency room on 03/08/18 with complaints of substernal chest pain. The patient had seen his juke box mechanic on Thursday prior to admission and was at that point told everything was okay. Three or four days later, he began shoveling snow and clearing his driveway and subsequently developed substernal chest discomfort. The patient was admitted for evaluation of his chest pain. The patient ruled out for an acute coronary syndrome with serial troponins and EKGs. He underwent an exercise nuclear stress test, which did not reveal any evidence of fixed or reversible perfusion defect. The patient, however, was found to have baseline hypertension with hypertensive response to exercise. The patient had a blood pressure of 207/84 with exercise, increasing to 228/16, early recovery. The patient is already on amlodipine 5 mg p.o. daily. His baseline blood pressures have been ranging from the one teens to utmost 146 systolic on the floor. Essentially most of his blood pressure readings during his hospitalization are at the AHA blood pressure guidelines 140/90. At this point, I am not making any adjustments to his antihypertensive regimen. However , if he has an increase in his blood pressure at subsequent visits, increasing his amlodipine to 10 mg daily would likely be beneficial. The patient is not on a beta-meng as he does have resting sinus bradycardia. At this point, the patient is stable for discharge home to continue on his usual home medication regimen. On the day of discharge, the patient is awake, alert, and oriented, sitting up in bed in no acute distress. His vital signs, blood pressure 140/69, pulse rate of 53, respiratory rate of 20, and a temperature of 98.9. His cardiac exam reveals a normal S1, S2 with bradycardic rate. There is no lower extremity edema. Lungs are clear to auscultation bilaterally. Abdomen is soft , nontender, nondistended. FOLLOWUP CONCERNS: The patient is being discharged home today, 03/09/18. Activity level is as tolerated. Diet is heart healthy. Condition on discharge is stable. The patient has been recommended to follow up with Dr. Pascal in the next 4 to 7 days. The patient will follow up with Dr. Davidson as needed or at his already scheduled appointment. TIME SPENT: 25 minutes were spent discharging this patient. [id number]/[facility] #: [id number] MTDD
== END 2018-03-09 11:00 | disposition home or self-care (01) ==
LOC: ED 06:23 → MEDTELE 10:43
PROVIDERS: ADMIT Student in an Organized Health Care Education/Training Program; ATTEND Hospitalist
DX: R07.89 Other chest pain (principal); I25.10 Atherosclerotic heart disease of native coronary artery without angina pectoris; I10 Essential (primary) hypertension; M10.9 Gout, unspecified; Z79.82 Long term (current) use of aspirin; R11.0 Nausea; E66.9 Obesity, unspecified; E78.5 Hyperlipidemia, unspecified; Z95.5 Presence of coronary angioplasty implant and graft
CPT/HCPCS: 36415; 71046; 78452; 80053; 82553; 83605; 83735; 83874; 83880; 84100; 84484; 85025; 85027; 85379; 85610; 85730; 93005; 93017; 93306; 96374; 96375; 99284; A9270-GY; A9502; G0378; J1650; J2785

== ENCOUNTER 2019-02-12 08:35 | Emergency (ER) | payer BC ==
--- OUTSIDE RECORDS SUMMARY | 2019-02-12 08:44 | XMS REPORT | Continuity of Care Document ---
:1955 External Reference #:[id number] Author Name Jamel Pascal M.D. (transmitted by agent of provider Elizabeth Nuñez ) Address [address], [place] [address] Problems Active Problems Provider Date Mixed hyperlipidemia Jamel Pascal M.D. Onset: 05/14/2011 Impaired fasting glycaemia Jamel Pascal M.D. Onset: 05/14/2011 Gout Jamel Pascal M.D. Onset: 05/14/2011 Pure hypercholesterolemia Jamel Pascal M.D. Onset: 07/13/2013 Atherosclerotic heart disease of [place] Sebastian Gipson M.D., [facility], Onset: 01/09 coronary artery with unspecified angina [facility] pectoris Encounter for planned postprocedural Sebastian Gipson M.D., [facility], Onset: 2015 wound closure [facility] Atherosclerotic heart disease of [place] Sebastian Gipson M.D., [facility], Onset: 07/09 coronary artery without angina pectoris [facility] Idiopathic gout, unspecified site Igor Osborne MD Onset: 2017 Essential hypertension Igor Osborne MD Onset: 03/08/2018 Chest pain Igor Osborne MD Onset: 03/08/2018 Social History Type Date Description Comments Sex Unknown Tobacco Use Start: Unknown Never Smoked Cigarettes ETOH Use Rarely consumes alcohol Tobacco Use Start: Unknown Patient has never smoked Recreational Drug Use Never Used Drugs Smoking Status Reviewed: 02/08/19 Patient has never smoked Exercise Type/Frequency Exercises regularly walks 1-2 times a day for 2 1/2 miles 4-5 days a week Allergies, Adverse Reactions, Alerts Description No Known Drug Allergies Medications Active Medications SIG Qnty Indications Ordering Provider Date Ciclopirox apply twice a 30gm B35.6 Jamel Pascal, 02/24/2018 0.77% Gel day for 2-3 M.D. weeks as needed Allopurinol take 1 tablet 90tabs Jamel Pascal, 07/10/2016 100mg Tablets by mouth once M.D. daily Aspir-81 1 by mouth 90tabs Jamel Pascal, 81mg Tablets DR every day M.D. Atorvastatin Calcium 1 by mouth 90tabs Devante Davidson, 80mg every day DO FACC Tablets Nitroglycerin 1 under tongue, 14tabs Devante Davidson, 0.4mg Tablets may repeat 3x DO FACC Sub Amlodipine Besylate 1 by mouth 90tabs Devante Davidson, 5mg every day DO FACC Tablets History Medications Bactrim DS 1 by mouth twice 20tabs M70.42 Vladimir Gupta, 10/07/2018 - a day x 10 days 10/19/2018 800-160mg Tablets Ibuprofen 1 by mouth three 90tabs M70.42 Vladimir Gupta, 10/07/2018 - 800mg times a day w 10/19/2018 Tablets food as needed pain and swelling Immunizations CPT Code Status Date Vaccine Lot # [id number] Given 02/24/2018 Tdap - Tetanus/Diptheria/Acellular Pertussis [id number] Given 02/24/2018 Influenza Virus Vaccine, Quadrivalent, Split, [id number] Preservative Free [id number] Given 06/09/2006 Td (History By Patient) Vital Signs Date Vital Result Comment 02/08/2019 9:10am Height 67 inches 5'7" Weight 245.00 lb Heart Rate 67 /min BP Systolic 124 mmHg BP Diastolic 78 mmHg Body Temperature 97.4 F O2 % BldC Oximetry 97 % BMI (Body Mass Index) 38.4 kg/m2 10/19/2018 3:00pm Height 67 inches 5'7" Weight 238.00 lb Heart Rate 68 /min BP Systolic Sitting 144 mmHg BP Diastolic Sitting 84 mmHg BMI (Body Mass Index) 37.3 kg/m2 Results Description No Information Available Procedures Date Code Description Status 10/07/2018 94257 Xray Knee 3 Views Completed 02/13/2011 57606480 Colonoscopy Completed 1955 21027556 Colonoscopy Completed Medical Devices Description No Information Available Encounters Type Date Location Provider Dx Diagnosis Office Visit 10/19/2018 [facility] Internal Jamel Pascal, I10 Essential ( primary) 3:00p Medicine - Amadeo Farias hypertension I25.119 Athscl heart disease of [place] cor art w unsp ang pctrs E78.00 Pure hypercholesterolemia, unspecified M10.00 Idiopathic gout, unspecified site M70.42 Prepatellar bursitis, left knee Office Visit 10/14/2018 9:45a [facility] Crawford70.42 Prepatellar at Jarad Gupta MD bursitis, left knee Office Visit 10/07/2018 11:15a [facility] Crawford70.42 Prepatellar at Jarad Gupta MD bursitis, left knee M25.562 Pain in left knee Assessments Date Code Description Provider 02/08/2019 B35.4 Tinea corporis Jamel Pascal M.D. 10/19/2018 I10 Essential (primary) hypertension Jamel Pascal M.D. 10/19/2018 I25.119 Atherosclerotic heart disease of [place] Jamel Pascal M.D. coronary artery with 10/19/2018 E78.00 Pure hypercholesterolemia, unspecified Jamel Pascal M.D. 10/19/2018 M10.00 Idiopathic gout, unspecified site Jamel Pascal M.D. 10/19/2018 M70.42 Prepatellar bursitis, left knee Jamel Pascal M.D. 10/14/2018 M70.42 Prepatellar bursitis, left knee Vladimir Gupta MD 10/07/2018 M70.42 Prepatellar bursitis, left knee Vladimir Gupta MD 10/07/2018 M25.562 Pain in left knee Vladimir Gupta MD Plan of Treatment Future Appointment(s):04/25/2019 1:20 pm - Jamel Pascal M.D. at [facility]ce[facility]75/22/2019 - Jamel Pascal M.D.B35.4 Tinea corporisComments:Recurrent skin rash over L inguinal crease similar to last year. No other skin c/o and no other episodes since last February. Fungal Rx refilled and pt advised to switch to boxers from his current briefs.Follow up: prn if sx fail to fully resolve or more frequent episodes noted Functional Status Description No Information Available Mental Status Description No Information Available Referrals Description No Information Available
[2019-02-12 09:03] VITALS: BP 134/67
--- NOTE | 2019-02-12 09:20 | UC ---
Throat Pain/Nasal Harshil HPI - HPI Summary HPI Summary: Pt presents with c/o gradual worsening of nasal congestion, sinus pressure and pain, cough and upper respiratory congestion X 1-2 weeks. - History of Current Complaint Chief Complaint: UCGeneralIllness Stated Complaint: SINUS CONCERN Time Seen by Provider: 02/12/19 09:13 Hx Obtained From: Patient Onset/Duration: Gradual Onset, Lasting Weeks, Still Present Severity: Mild Pain Intensity: 3 Cough: Nonproductive Associated Signs & Symptoms: Positive: Sinus Discomfort - Epiglottits Risk Factors Epiglottis Risk Factors: Negative - Allergies/Home Medications Allergies/Adverse Reactions: Allergies Allergy/AdvReac Type Severity Reaction Status Date / Time No Known Allergies Allergy Verified 02/12/19 09:00 PMH/Surg Hx/FS Hx/Imm Hx Previously Healthy: Yes Other History Of: Negative For: HIV, Hepatitis B, Hepatitis C, Anticoagulant Therapy - Surgical History Surgical History: Yes Surgery Procedure, Year, and Place: Cardiac Catherization, stent (01/02/2016) - Family History Known Family History: Negative: Cardiac Disease, Hypertension, Diabetes, Renal Disease - Social History Occupation: Employed Full-time Lives: With Family Alcohol Use: Rare Substance Use Type: None Smoking Status (MU): Never Smoked Tobacco Have You Smoked in the Last Year: No - Immunization History Vaccination Up to Date: Yes Review of Systems All Other Systems Reviewed And Are Negative: Yes Constitutional: Positive: Chills, Fatigue Skin: Positive: Negative Eyes: Positive: Negative ENT: Positive: Sinus Congestion, Sinus Pain/Tenderness Respiratory: Positive: Cough Cardiovascular: Positive: Negative Gastrointestinal: Positive: Negative Genitourinary: Positive: Negative Motor: Positive: Negative Neurovascular: Positive: Negative Musculoskeletal: Positive: Negative Neurological: Positive: Negative Psychological: Positive: Negative Is Patient Immunocompromised?: No Physical Exam Triage Information Reviewed: Yes Appearance: Ill-Appearing Vital Signs: Initial Vital Signs Temp 97.7 F 02/12/19 08:58 Pulse 60 02/12/19 08:58 Resp 16 02/12/19 08:58 BP 134/67 02/12/19 08:58 Pulse Ox 98 02/12/19 08:58 Vital Signs Reviewed: Yes Eye Exam: Normal ENT: Positive: Nasal congestion, Sinus tenderness Dental Exam: Normal Neck exam: Normal Respiratory: Positive: Wheezing - with cough Cardiovascular Exam: Normal Musculoskeletal Exam: Normal Neurological Exam: Normal Psychological Exam: Normal Skin Exam: Normal Throat Pain/Nasal Course/Dx - Differential Dx/Diagnosis Differential Diagnosis/HQI/PQRI: Pharyngitis, Sinusitis, Tonsillitis Provider Diagnosis: Sinusitis Discharge ED - Sign-Out/Discharge Documenting (check all that apply): Patient Departure All imaging exams completed and their final reports reviewed: No Studies - Discharge Plan Condition: Stable Disposition: HOME Prescriptions: Amoxicillin/Clavulanate TAB* [Augmentin TAB 875*] 875 mg PO Q12H #20 tab Benzonatate CAP* [Tessalon 100 MG CAP*] 200 mg PO Q8H PRN #30 cap PRN Reason: Cough Patient Education Materials: Sinusitis (ED) Referrals: Jamel Pascal MD [Primary Care Provider] - If Needed Additional Instructions: Please follow up with your PCP as needed. For symptom management please use Coricidin brand or the generic equivalent. - Billing Disposition and Condition Condition: STABLE Disposition: Home
== END 2019-02-12 09:28 | disposition home or self-care (01) ==
LOC: UCCORT 08:35
DX: J32.9 Chronic sinusitis, unspecified (principal)
CPT/HCPCS: 99212; G0463

== ENCOUNTER 2024-05-02 07:09 | Observation (INO) ==
[~2024-05-02 07:09] MED LIST: Metoclopramide 5 MG/ML VIAL (10 mg) IV PRN; NS 0.45% 1000 ml BAG 1,000 ML IV SCH; Naloxone 0.4 mg VIAL 0.4 mg/ml 1 ml VIAL IV PRN; Ondansetron 4 mg VIAL 2 MG/ML 2 ml VIAL IV PRN
[2024-05-02] MEDS ORDERED: Tranexamic Acid 1 GM/100ML BAG 2,000 MG/200 ML BAG IV ONE (07:22)
[2024-05-02] MEDS ORDERED: ceFAZolin 2 GM PREMIX 2 GM/50 ML BAG ONE (07:22)
[2024-05-02] MEDS ORDERED: fentaNYL 100 mcg/2 ml 50 MCG/ML VIAL ONE ×3 (07:29→13:34)
[2024-05-02] MEDS ORDERED: Midazolam 2 mg/2 ml VIAL 1 mg/ml 2 ml VIAL (2 mg) ONE (07:29)
[2024-05-02] MEDS ORDERED: ROPIVACAINE 5 MG/ML 30 ML BTL (0.5%) ONE (07:29)
[2024-05-02] MEDS ORDERED: Dexamethasone IV 4 MG/ML VIAL 1 ml VIAL ONE ×2 (07:29→09:43)
[2024-05-02 07:54] LABS: Rapid COVID-19 Molecular Undetected (Undetected)
[2024-05-02] MEDS ORDERED: Propofol 10 MG/ML 20 ML BTL ONE ×4 (08:30→13:03)
[2024-05-02] MEDS ORDERED: Lidocaine 2% PF 5 ML VIAL ONE (08:30)
[2024-05-02] MEDS ORDERED: Vancomycin 1,000 MG VIAL ONE (09:09)
[2024-05-02] MEDS ORDERED: Ondansetron 4 mg VIAL 2 MG/ML 2 ml VIAL ONE (09:43)
[2024-05-02] MEDS ORDERED: HYDROmorphone 0.5 MG/0.5 ML SYRINGE ONE ×2 (09:51→10:14)
[2024-05-02] MEDS ORDERED: Ondansetron ODT 4 mg TAB 4 MG TAB PO PRN (10:04)
[2024-05-02] MEDS ORDERED: Lactulose 30 ml UDC PO PRN (10:04)
[2024-05-02] MEDS ORDERED: Morphine 2 MG/ML SYRINGE IV PRN (10:04)
[2024-05-02] MEDS ORDERED: Magnesium Hydroxide LIQ 30 ML UDC PO PRN (10:04)
[2024-05-02] MEDS ORDERED: Calcium Carb (TUMS) 500 mg CHEW TAB PO PRN (10:04)
[2024-05-02] MEDS ORDERED: Ondansetron 4 mg VIAL 2 MG/ML 2 ml VIAL IV PRN (10:04)
[2024-05-02] MEDS ORDERED: Rocuronium 50 mg VIAL 10 mg/ml 5 ml VIAL (50 mg) ONE (11:08)
[2024-05-02] MEDS ORDERED: Levalbuterol HFA INHALER MDI ONE (11:22)
[2024-05-02] MEDS: fentaNYL 100 mcg/2 ml 50 MCG/ML VIAL IV PRN (13:37)
[2024-05-02] MEDS: Acetaminophen IV 1 GM/100ML 1,000 MG/100 ML BAG IV ONE (15:28)
[2024-05-02] MEDS: Lactated Ringers 1000 ml BAG 1,000 ML IV SCH ×2 (15:28→15:54)
[2024-05-02] MEDS: Albuterol/Ipratropium NEB.SOL (2.5/0.5 MG) 3 ML NEB.SOLN INH ONE (15:28)
[2024-05-02] MEDS: Buffered Lidocaine 1% SYRIN 1 ml INTRADERM ONE (15:28)
[2024-05-02] MEDS: Scopolamine 1 mg/72hr PATCH TRANSDERM ONE (15:29)
[2024-05-02] MEDS: ceFAZolin 2 GM PREMIX 2 GM/50 ML BAG IV SCH (18:15)
[2024-05-02] MEDS: Magnesium Hydroxide LIQ 30 ML UDC PO SCH (20:56)
[2024-05-03 05:47] LABS: Hematocrit 38.6 % (38-53); Hemoglobin 13.1 g/dL (13.2-16.3); Mean Platelet Volume 10.7 fL (7.5-11.2); Platelet Count 170 10^3/uL (150-450)
[2024-05-03 06:05] LABS: Calcium 8.6 mg/dL (8.6-10.3); Creatinine, Serum 0.98 mg/dL (0.67-1.17); Potassium 3.9 mmol/L (3.5-5.0)
[2024-05-03] MEDS: Vitamin THERAPEUTIC TAB PO SCH (08:16)
[2024-05-03 10:14] VITALS: BP 122/68
== END 2024-05-03 13:00 | disposition home or self-care (01) ==
LOC: SSU 07:09 → OR 07:09
PROVIDERS: ADMIT Orthopaedic Surgery; ATTEND Orthopaedic Surgery